=== PATIENT | female | born 1985 | race Caucasian/White ===

== ENCOUNTER 2016-07-23 09:44 | Emergency (ER) | payer MEDICAID, OTHER ==
[2016-07-23 10:13] VITALS: BP 148/97
--- NOTE | 2016-07-23 10:43 | RAD ---
INDICATION: Right ankle injury. TECHNIQUE: 3 views of the right ankle were obtained. FINDINGS: Soft tissue swelling is noted along the anterolateral aspect of the ankle. No fracture is seen. Joint spaces appear maintained. IMPRESSION: SOFT TISSUE SWELLING, NO FRACTURE IS SEEN.
--- NOTE | 2016-07-23 10:56 | UC ---
Lower Extremity/Ankle HPI - HPI Summary HPI Summary: Stepped on uneven ground 2 weeks ago and rolled R ankle. Had similar injury about 2-3 months before that. Pain in ankle since then, especially after being on it for a couple hours. Pain radiates up leg. Denies hx of surgery or severe injury. - History of Current Complaint Chief Complaint: UCLowerExtremity Stated Complaint: ANKLE INJURY Time Seen by Provider: 07/23/16 10:07 Hx Obtained From: Patient Hx Last Menstrual Period: mirana ?: No Onset/Duration: Sudden Onset Severity Initially: Moderate Severity Currently: Moderate Aggravating Factor(s): Standing, Ambulation Alleviating Factor(s): Rest Able to Bear Weight: Yes - Allergies/Home Medications Allergies/Adverse Reactions: Allergies Allergy/AdvReac Type Severity Reaction Status Date / Time Penicillins Allergy Severe Swelling Verified 01/31/16 12:39 Home Medications: Home Medications Ibuprofen [Advil] 600 mg PO 07/23/16 [History] PMH/Surg Hx/FS Hx/Imm Hx Endocrine History Of: Denies: Diabetes, Thyroid Disease Cardiovascular History Of: Reports: Hypertension Denies: Cardiac Disorders Respiratory History Of: Denies: COPD, Asthma GI/ History Of: Denies: Ulcer - Surgical History Surgical History: Yes Surgery Procedure, Year, and Place: Gallbladder removed 2008 - Family History Known Family History: Positive: Hypertension, Diabetes, Other - Arthritis - Social History Occupation: Employed Full-time Lives: With Family Alcohol Use: Occasionally Substance Use Type: None Smoking Status (MU): Never Smoked Tobacco Household Exposure Type: Cigarettes Review of Systems Constitutional: Negative Skin: Negative Eyes: Negative ENT: Negative Respiratory: Negative Cardiovascular: Negative Gastrointestinal: Negative Genitourinary: Negative Motor: Negative Neurovascular: Negative Musculoskeletal: Arthralgia Neurological: Negative Psychological: Negative All Other Systems Reviewed And Are Negative: Yes Physical Exam Triage Information Reviewed: Yes Appearance: Well-Appearing, No Pain Distress, Well-Nourished Vital Signs: Initial Vital Signs Temp 97.9 F 07/23/16 10:06 Pulse 72 07/23/16 10:06 Resp 18 07/23/16 10:06 BP 148/97 07/23/16 10:06 Pulse Ox 99 07/23/16 10:06 Vital Signs Reviewed: Yes Eye Exam: Normal Eyes: Positive: Conjunctiva Clear ENT Exam: Normal ENT: Positive: Normal ENT inspection, Hearing grossly normal, Pharynx normal, TMs normal Dental Exam: Normal Neck exam: Normal Neck: Positive: Supple, Nontender, No Lymphadenopathy Respiratory Exam: Normal Respiratory: Positive: Chest non-tender, Lungs clear, Normal breath sounds, No respiratory distress, No accessory muscle use Cardiovascular Exam: Normal Cardiovascular: Positive: RRR, No Murmur Musculoskeletal Exam: Other - mild tenderness R med and lat malleolus Musculoskeletal: Positive: Strength Intact, ROM Intact Neurological Exam: Normal Psychological Exam: Normal Skin Exam: Normal Lower Extremity Course/Dx - Differential Dx/Diagnosis Provider Diagnoses: R ankle sprain Discharge - Discharge Plan Condition: Stable Disposition: HOME Patient Education Materials: Ankle Sprain (ED) Referrals: Genna Sharma NP [Primary Care Provider] - Additional Instructions: Please arrange for physical therapy and follow up with your primary care provider to discuss whether you will need to see an orthopedist.
== END 2016-07-23 11:05 | disposition home or self-care (01) ==
LOC: UCEAST 09:44
DX: S93.401A Sprain of unspecified ligament of right ankle, initial encounter (principal); X50.1XXA Overexertion from prolonged static or awkward postures, initial encounter; Y93.9 Activity, unspecified; Y92.89 Other specified places as the place of occurrence of the external cause; Z88.0 Allergy status to penicillin; Z90.49 Acquired absence of other specified parts of digestive tract; Z77.22 Contact with and (suspected) exposure to environmental tobacco smoke (acute) (chronic)
CPT/HCPCS: 99212; G0463

== ENCOUNTER 2016-09-05 14:45 | Emergency (ER) | payer OTHER ==
[2016-09-05 15:05] VITALS: BP 130/76
--- NOTE | 2016-09-05 15:20 | UC ---
Throat Pain/Nasal Blaise HPI - HPI Summary HPI Summary: Started Wednesday night with achy right shoulder. Had continued body aches. Yesterday she states that she woke up feeling like she got "punched in the face. " She also complains of a headache along with the sinus pain. Yesterday, she took three Tylenol and had relief for an hour. This morning she woke up with a swollen throat. She states that her throat is sore and it is painful to swallow. Her sister was recently diagnosed with strep throat. - History of Current Complaint Chief Complaint: UCRespiratory Stated Complaint: SORE THROAT, HEADACHE,AND SINUS CONGESTION Time Seen by Provider: 09/05/16 15:00 Hx Obtained From: Patient Hx Last Menstrual Period: mirana Onset/Duration: Gradual Onset Severity: Moderate Cough: Nonproductive Associated Signs & Symptoms: Positive: Sinus Discomfort, Other - Chills, headache and body aches Related History: Seasonal Allergies - Allergies/Home Medications Allergies/Adverse Reactions: Allergies Allergy/AdvReac Type Severity Reaction Status Date / Time Penicillins Allergy Severe Swelling Verified 09/05/16 15:05 Home Medications: Home Medications Acetaminophen [Tylenol] 2 PRN 09/05/16 [History] PMH/Surg Hx/FS Hx/Imm Hx Previously Healthy: Yes Endocrine History Of: Denies: Diabetes, Thyroid Disease Cardiovascular History Of: Reports: Hypertension Denies: Cardiac Disorders Respiratory History Of: Denies: COPD, Asthma GI/ History Of: Denies: Ulcer - Surgical History Surgical History: Yes Surgery Procedure, Year, and Place: Gallbladder removed 2008 - Family History Known Family History: Positive: Hypertension, Diabetes, Other - Arthritis - Social History Occupation: Employed Full-time Lives: With Family Alcohol Use: Occasionally Substance Use Type: None Smoking Status (MU): Never Smoked Tobacco Household Exposure Type: Cigarettes Review of Systems Constitutional: Chills, Other - Body aches Skin: Negative Eyes: Negative ENT: Sore Throat, Other - Sinus pain, headache Respiratory: Negative Cardiovascular: Negative Gastrointestinal: Negative Genitourinary: Negative Motor: Negative Neurovascular: Negative Musculoskeletal: Negative Neurological: Negative Psychological: Negative All Other Systems Reviewed And Are Negative: Yes Physical Exam Triage Information Reviewed: Yes Appearance: Well-Nourished, Pain Distress - grimacing occasionally Vital Signs: Initial Vital Signs Temp 98.4 F 09/05/16 14:59 Pulse 76 09/05/16 14:59 Resp 18 09/05/16 14:59 BP 130/76 09/05/16 14:59 Pulse Ox 98 09/05/16 14:59 Vital Signs Reviewed: Yes Eye Exam: Normal Eyes: Positive: Conjunctiva Clear ENT Exam: Normal ENT: Positive: Normal ENT inspection, Hearing grossly normal, Pharynx normal, TMs normal. Negative: Pharyngeal erythema, Tonsillar swelling, Tonsillar exudate Neck exam: Other Neck: Positive: Tenderness @ - With palpation of neck Respiratory Exam: Normal Respiratory: Positive: Chest non-tender, Lungs clear, Normal breath sounds, No respiratory distress Cardiovascular Exam: Normal Cardiovascular: Positive: RRR, No Murmur Musculoskeletal Exam: Normal Musculoskeletal: Positive: Strength Intact Neurological Exam: Normal Neurological: Positive: Alert Psychological Exam: Normal Psychological: Positive: Age Appropriate Behavior Skin Exam: Normal Throat Pain/Nasal Course/Dx - Course Course Of Treatment: Sinusitis. Pharyngitis - Differential Dx/Diagnosis Differential Diagnosis/HQI/PQRI: Influenza, Pharyngitis, Sinusitis, Other - Strep throat Provider Diagnoses: Sinusitis and Pharyngitis Discharge - Discharge Plan Condition: Stable Disposition: HOME Patient Education Materials: Sinusitis (ED) Print Language: LITHUANIAN Referrals: Genna Sharma NP [Primary Care Provider] - Additional Instructions: This is most likely a viral sinusitis. Symptoms may last 2-3 weeks. Take Ibuprofen for sinus and throat pain. May use salt water rinses or numbing agents such as Chloraseptic for throat pain. Drink plenty of fluids. If symptoms continue to worsen or you experience fevers, call or come back.
== END 2016-09-05 15:57 | disposition home or self-care (01) ==
LOC: UCEAST 14:45
DX: J32.9 Chronic sinusitis, unspecified (principal); J02.9 Acute pharyngitis, unspecified; I10 Essential (primary) hypertension; Z88.0 Allergy status to penicillin
CPT/HCPCS: 87651; 99211; G0463

== ENCOUNTER 2016-12-19 12:47 | Emergency (ER) | payer OTHER ==
[2016-12-19 13:58] VITALS: BP 220/120
[2016-12-19] MEDS ORDERED: Ondansetron ODT TAB* 4 MG PO ONE (14:01)
--- NOTE | 2016-12-19 15:00 | UC ---
Leidy Bosch Edward, scribed for Lydia Randle DO on 12/19/16 at 1353 . Abdominal Pain Female HPI - HPI Summary HPI Summary: 30 y/o female presents to [facility] c/o ABD pain that started 2 days ago. The pain is rated at an 8/10 in severity and described as stomach cramps. Associated sx: N/V/D, chills, fatigue last night, cough, back pain (earlier this week) and dizziness. The patient states that she can't keep anything down (including water and power sendy) and is nauseous now. There were 3 episodes of watery diarrhea that was not odorous. She states she has vomited more than 5 times a day. The nausea wakes the patient up multiple times per night. Patient also c/o RAMIREZ that is getting progressively worse from a 3/10 this morning to a 7/10 now. Denies fever, sore throat, ear ache, SOB. PMHx HTN. FHx mother HTN, pre-diabetic ; grandmother arthritis. Non-smoker. PT INITIALLY DENIED CP BUT NOT LATER ADMITTED TO A COUPLE OF EPISODES OF RT SIDED CP YESTERDAY. - History of Current Complaint Chief Complaint: UCAbdominalPain Stated Complaint: COUGH VOMITING DIARRHEA Time Seen by Provider: 12/19/16 13:47 Hx Obtained From: Patient Hx Last Menstrual Period: mirena Onset/Duration: Sudden Onset, Lasting Days, Still Present, Worse Since - WORSING RAMIREZ AND DEHYDRATION Severity Initially: Severe Severity Currently: Severe Pain Intensity: 8 Pain Scale Used: 0-10 Numeric Location: Discrete At: LUQ, Epigastric Radiates: No Character: Cramping Aggravating Factor(s): Food Alleviating Factor(s): Nothing Associated Signs and Symptoms: Positive: Cough, Chest Pain, Dizzy, Back Pain - Around a week ago, Nausea, Vomiting, Diarrhea, Other: - Chills, fatigue. Negative: Diaphoresis, Fever, Urinary Symptoms Allergies/Adverse Reactions: Allergies Allergy/AdvReac Type Severity Reaction Status Date / Time Penicillins Allergy Severe Swelling Verified 09/05/16 15:05 PMH/Surg Hx/FS Hx/Imm Hx Previously Healthy: No Cardiovascular History: Hypertension - Surgical History Surgical History: Yes Surgery Procedure, Year, and Place: Gallbladder removed 2008 - Family History Known Family History: Positive: Hypertension, Diabetes, Other - Arthritis - Social History Occupation: Employed Full-time Lives: With Family Alcohol Use: Occasionally Substance Use Type: None Smoking Status (MU): Never Smoked Tobacco Household Exposure Type: Cigarettes Review of Systems Constitutional: Chills, Fatigue Skin: Negative Eyes: Negative ENT: Negative Respiratory: Cough Cardiovascular: Chest Pain Gastrointestinal: Abdominal Pain, Vomiting - more than 5 times a day, Diarrhea, Nausea Genitourinary: Negative Motor: Negative Neurovascular: Negative Musculoskeletal: Myalgia - Back pain last week Neurological: Headache, Other - Dizziness Psychological: Negative All Other Systems Reviewed And Are Negative: Yes Physical Exam Triage Information Reviewed: Yes Appearance: No Pain Distress, Well-Nourished, Ill-Appearing - Mild to moderate Vital Signs: Initial Vital Signs Temp 98.7 F 12/19/16 12:50 Pulse 71 12/19/16 12:50 Resp 18 12/19/16 12:50 BP 198/116 12/19/16 12:50 Pulse Ox 100 12/19/16 12:50 Vital Signs Reviewed: Yes Eyes: Positive: Conjunctiva Clear. Negative: Discharge ENT: Positive: Hearing grossly normal. Negative: Muffled/hoarse voice Neck exam: Normal Neck: Positive: Supple Respiratory: Positive: Lungs clear, Normal breath sounds, No respiratory distress, No accessory muscle use Cardiovascular Exam: Normal Cardiovascular: Positive: RRR Abdomen Description: Positive: Soft, Other: - Mild tenderness @ LUQ and epigastric area. Negative: Distended, Guarding Bowel Sounds: Positive: Present Musculoskeletal Exam: Normal Neurological Exam: Normal Neurological: Positive: Alert, Muscle Tone Normal Psychological Exam: Normal Psychological: Positive: Age Appropriate Behavior Skin Exam: Normal Diagnostics - EKG Cardiac Rhythm: Sinus: Normal - @ 77 bpm Ectopy: None ST Segment: Normal - No ST elevation Abd Pain Female Course/Dx - Course Course Of Treatment: BP 220/120, RAMIREZ, DIZZY, VOMITING, CP, HEMATURIA, PROTEINURIA , ABD PAIN, DEHYDRATION - Differential Dx/Diagnosis Differential Diagnosis: Ectopic , OK, Pancreatitis, Renal Colic, Urinary Tract Infection, Other - HTN CRISIS, GASTROENTERITIS Provider Diagnoses: HTN CRISIS Discharge - Discharge Plan Condition: Guarded Disposition: TRANS HIGHER LVL OF CARE FAC The documentation as recorded by the Leidy lopez Edward accurately reflects the service I personally performed and the decisions made by , Lydia Randle DO.
== END 2016-12-19 14:52 | disposition short-term general hospital (02) ==
LOC: UCEAST 12:47
DX: I16.9 Hypertensive crisis, unspecified (principal)
CPT/HCPCS: 81003; 84702; 93005; 99213; A9270-GY; G0463

== ENCOUNTER 2016-12-19 15:08 | Emergency (ER) | payer OTHER ==
[2016-12-19] MEDS ORDERED: NS 0.9% 1000 ML* 1,000 ML IV ONE (15:28)
[2016-12-19] MEDS ORDERED: Ondansetron INJ* 2 MG/ML VIAL IV ONE (15:36)
[2016-12-19] MEDS ORDERED: Morphine INJ* 4 MG/ML 1 ML SYRINGE IV ONE (16:01)
[2016-12-19 16:07] LABS: Urine Bacteria Absent (Absent); Urine Bilirubin Negative (Negative); Urine Glucose Negative (Negative); Urine Nitrite Negative (Negative)
[2016-12-19 16:21] LABS: Hematocrit 42 % (35-47); Hemoglobin 14.1 g/dl (12.0-16.0); Mean Corpuscular HGB Conc 34 g/dl (31-36); Mean Corpuscular Hemoglobin 31 pg (27-31); Mean Corpuscular Volume 91 fL (80-97); Mean Platelet Volume 10 um3 (7.4-10.4); Red Blood Count 4.58 10^6/ul (4.0-5.4); Red Cell Distribution Width 14 % (10.5-15); White Blood Count 10.8 10^3/ul (3.5-10.8)
[2016-12-19 16:37] LABS: Albumin 4.5 g/dL (3.2-5.2); BUN/Creatinine Ratio 20.6 (8-20); C Reactive Protein 4.18 mg/L (< 5.00); Calcium 9.1 mg/dL (8.6-10.3); EGFR African American 130.7 (>60); EGFR Non-African American 101.6 (>60); Globulin 3.3 g/dL (2-4); Potassium 3.7 mmol/L (3.5-5.0); Total Bilirubin 0.9 mg/dL (0.2-1.0); Total Protein 7.8 g/dL (6.4-8.9)
[2016-12-19] MEDS ORDERED: Iohexol 300* (CONTRAST) 10 ML SDV IV ONE (17:01)
--- NOTE | 2016-12-19 18:13 | RAD ---
CLINICAL HISTORY: Right lower quadrant pain, vomiting COMPARISON: None TECHNIQUE: Multiple contiguous axial CT scans were obtained of the abdomen and pelvis after the administration of intravenous contrast. Coronal and sagittal multiplanar reformations are submitted for review. Oral contrast was administered. Delayed images were obtained through the abdomen and pelvis. FINDINGS: LUNG BASES: The lung bases are clear. LIVER: The liver is diffusely low in attenuation compared to the spleen. There are no focal hepatic parenchymal masses. BILE DUCTS: There is no intrahepatic or extrahepatic biliary dilatation. GALLBLADDER: The gallbladder is not visualized. Surgical clips are noted in the gallbladder fossa. PANCREAS: The pancreas is normal, without mass or ductal dilatation. SPLEEN: Normal in size and appearance. UPPER GI TRACT: Evaluation of the gastrointestinal tract is limited by incomplete gastric distention. The upper GI tract is unremarkable. SMALL BOWEL AND MESENTERY: The small bowel is normal in contour, course, and caliber. There is no obstruction or dilatation. COLON: The colon is normal in contour, course, caliber. There is no pericolonic inflammatory change. There is a tubular, vermiform, hollow viscus that is blind ending, and originates from the cecum, consistent with a normal appendix. There is no periappendiceal inflammatory change. This is best seen on axial images 51 through 57 ADRENALS: Normal bilaterally. KIDNEYS: The kidneys are normal in shape, size, contour, and axis. There is no hydronephrosis or nephrolithiasis. BLADDER: The bladder is smooth in contour. PELVIC ORGANS: The uterus and adnexa are grossly normal for technique. An IUD is noted AORTA: The aorta is normal. IVC: Unremarkable LYMPH NODES: There is no lymphadenopathy by size criteria. ABDOMINAL WALL: There is no evidence for abdominal wall hernia. BONES AND SOFT TISSUES: Unremarkable OTHER: None IMPRESSION: 1. NORMAL APPENDIX. 2. FATTY LIVER. 3. NO ACUTE CT PATHOLOGY OF THE VISUALIZED ABDOMEN OR PELVIS
[2016-12-19] MEDS ORDERED: Ondansetron TAB* 4 MG PO ONE (18:45)
[2016-12-19 18:59] VITALS: BP 172/138
--- NOTE | 2016-12-20 22:40 | ED ---
Maxwell Bosch Thomas, scribed for Facundo Hernandez MD on 12/19/16 at 1542 . GI/ HPI - HPI Summary HPI Summary: The pt is a 30 y/o M who presents to the ED c/o central abd pain that began two days ago. She additionally c/o nausea, dry heaves, diarrhea, RAMIREZ, and chills. The pt has thrown up 4x today. She cannot keep anything down. Her RAMIREZ is improving. She denies black bowel movements, bloody stool. She saw Dr. Ag at [facility], where she was given a pill for nausea but did not have an IV. She claims that her BP was 230/180. PSHx: cholecystectomy. The pt is accompanied by her mother and sister. SHx: occasional drinking, no tobacco use, no drug use. LNMP: October (pt is on Mirena). She was not previously treated for BP. - History of Current Complaint Chief Complaint: EDNauseaVomitDiarrh Time Seen by Provider: 12/19/16 15:24 Stated Complaint: ABD PAIN, COMMING FROM CC Hx Obtained From: Patient Onset/Duration: Started Days Ago - 2 days, Still Present, Worse Since - this AM Associated Signs and Symptoms: Positive: Nausea, Vomiting, Chills, Abdominal Pain - onset two days ago, Other: - POS: dry heaving, RAMIREZ (improving). Negative : Black Tarry Stool, Blood w/Stool Additional Signs & Symptoms: Positive: Other: - POS: pt is on Mirena - Allergy/Home Medications Allergies/Adverse Reactions: Allergies Allergy/AdvReac Type Severity Reaction Status Date / Time Penicillins Allergy Severe Swelling Verified 09/05/16 15:05 PMH/Surg Hx/FS Hx/Imm Hx Previously Healthy: No Endocrine/Hematology History: Denies: Hx Diabetes, Hx Thyroid Disease Cardiovascular History: Reports: Hx Hypertension Respiratory History: Denies: Hx Asthma, Hx Chronic Obstructive Pulmonary Disease (COPD) GI History: Denies: Hx Ulcer - Surgical History Surgery Procedure, Year, and Place: Gallbladder removed 2008 Infectious Disease History: Denies: Hx Clostridium Difficile, Hx Hepatitis, Hx Human Immunodeficiency Virus (HIV), Hx of Known/Suspected MRSA, Hx Shingles, Hx Tuberculosis, Hx Known/ Suspected VRE, Hx Known/Suspected VRSA, History Other Infectious Disease, Traveled Outside the [place] in Last 30 Days - Family History Known Family History: Positive: Hypertension, Diabetes, Other - Arthritis - Social History Alcohol Use: Occasionally Substance Use Type: Reports: None Smoking Status (MU): Never Smoked Tobacco Review of Systems Positive: Chills. Negative: Fever Eyes: Negative Negative: Erythema - eyes ENT: Negative Negative: Sore Throat Cardiovascular: Negative Negative: Chest Pain Respiratory: Negative Negative: Shortness Of Breath, Cough Positive: Abdominal Pain - onset two days ago, Vomiting - now dry heaving, Diarrhea, Nausea, Other - NEG: black bowel movements, bloody stool Genitourinary: Negative Negative: dysuria, hematuria Musculoskeletal: Negative Negative: Myalgia, Edema - legs Skin: Negative Negative: Rash Neurological: Other - NEG: dizziness Positive: Headache - improving since in the ED Psychological: Normal All Other Systems Reviewed And Are Negative: Yes Physical Exam - Summary Physical Exam Summary: Constitutional: Well-developed, Well-nourished, Alert. (-) Distressed Skin: Warm, Dry HENT: Normocephalic; Atraumatic Eyes: Conjunctiva normal Neck: Musculoskeletal ROM normal neck. (-) JVD, (-) Stridor, (-) Tracheal deviation Cardio: Rhythm regular, rate normal, Heart sounds normal; Intact distal pulses; The pedal pulses are 2+ and symmetric. Radial pulses are 2+ and symmetric. (-) Murmur Pulmonary/Chest wall: Effort normal. (-) Respiratory distress, (-) Wheezes, (-) Rales Abd: RLQ and LLQ TTP. Also Tender to light touch. Soft, (-) Distension, (-) Guarding, (-) Rebound Musculoskeletal: (-) Edema Lymph: (-) Cervical adenopathy Neuro: Alert, Oriented x3 Psych: Mood and affect Normal Triage Information Reviewed: Yes Vital Signs On Initial Exam: Initial Vitals Temp Pulse Resp BP Pulse Ox 98.1 F 76 20 202/112 100 12/19/16 15:24 12/19/16 15:24 12/19/16 15:24 12/19/16 15:24 12/19/16 15:24 Vital Signs Reviewed: Yes Diagnostics - Vital Signs Vital Signs Temp Pulse Resp BP Pulse Ox 12/19/16 15:24 98.1 F 76 20 202/112 100 - Laboratory Result Diagrams: 12/19/16 14:30 12/19/16 14:30 Lab Statement: Any lab studies that have been ordered have been reviewed, and results considered in the medical decision making process. - CT CT Abd/Pel CT Interpretation: No Acute Changes - 1. NORMAL APPENDIX. 2. FATTY LIVER. 3. NO ACUTE CT PATHOLOGY OF THE VISUALIZED ABDOMEN OR PELVIS CT Interpretation Completed By: Radiologist Re-Evaluation - Re-Evaluation First Eval Re-Evaluation Time: 18:46 Change: Improved Comment: Patient tolerated PO GIGU Course/Dx - Course Assessment/Plan: The pt is a 30 y/o M who presents to the ED c/o central abd pain that began two days ago. She additionally c/o nausea, dry heaves, diarrhea , RAMIREZ, and chills. The pt has thrown up 4x today. She cannot keep anything down. Her RAMIREZ is improving. She denies black bowel movements, bloody stool. She saw Dr. Ag at [facility], where she was given a pill for nausea but did not have an IV. She claims that her BP was 230/180. PSHx: cholecystectomy. The pt is accompanied by her mother and sister. SHx: occasional drinking, no tobacco use, no drug use. LNMP: October (pt is on Mirena). She was not previously treated for BP. A CT Abd/Pel revealed 1. NORMAL APPENDIX. 2. FATTY LIVER. 3. NO ACUTE CT PATHOLOGY OF THE VISUALIZED ABDOMEN OR PELVIS. Bloodwork revealed Lymph % 21.5, Pine% 9.7, absolute monos 1.1, BUN/Creatinine ratio 20.6, Ur specific gravity 1.006, Urine blood 1+H, Ur squamous cells present. Pt was re-evaluated and is now tolerating PO intake. In the ED course, she received morphine, ondansetron, and IV fluids. Pt was diagnosed with gastroenteritis and hypertension and given educational materials. She was discharged home stable and advised to return if changing or worsening symptoms. - Diagnoses Provider Diagnoses: Gastroenteritis, Hypertension Discharge - Discharge Plan Condition: Stable Disposition: HOME Prescriptions: Ondansetron ODT TAB* [Zofran 4 MG Odt TAB*] 4 mg PO Q8H PRN #9 tab.odt PRN Reason: Nausea/Vomiting Patient Education Materials: Gastroenteritis (ED), Hypertension (ED) Referrals: Harjeet BAZAN,Corina A. B [Primary Care Provider] - 3 Days Additional Instructions: RETURN TO THE EMERGENCY DEPARTMENT FOR CHANGING OR WORSENING SYMPTOMS The documentation as recorded by the Maxwell lopez Thomas accurately reflects the service I personally performed and the decisions made by me, Facundo Hernandez MD.
== END 2016-12-19 19:11 | disposition home or self-care (01) ==
LOC: ED 15:08
DX: K52.9 Noninfective gastroenteritis and colitis, unspecified (principal); I10 Essential (primary) hypertension
CPT/HCPCS: 36415; 74177; 80053; 81003; 81015; 83605; 83690; 85025; 86140; 96374; 96375; 99283; A9270-GY; J2270; J2405; Q9967

== ENCOUNTER 2016-12-23 18:11 | Emergency (ER) | payer OTHER ==
[2016-12-23] MEDS ORDERED: Nitroglycerin TAB 0.4 MG* 0.4 MG TAB SL ONE (20:02)
[2016-12-23] MEDS ORDERED: Aspirin Low Dose CHEW TAB* 81 MG PO ONE (20:02)
[2016-12-23] MEDS ORDERED: Morphine INJ* 4 MG/ML 1 ML SYRINGE IV ONE (20:02)
[2016-12-23] MEDS ORDERED: Ondansetron INJ* 2 MG/ML VIAL IV ONE (20:02)
[2016-12-23] MEDS ORDERED: NS 0.9% 1000 ML* 1,000 ML IV SCH (20:15)
[2016-12-23 20:25] LABS: Hematocrit 40 % (35-47); Hemoglobin 13.2 g/dl (12.0-16.0); Mean Corpuscular HGB Conc 33 g/dl (31-36); Mean Corpuscular Hemoglobin 31 pg (27-31); Mean Corpuscular Volume 92 fL (80-97); Mean Platelet Volume 9 um3 (7.4-10.4); Red Blood Count 4.32 10^6/ul (4.0-5.4); Red Cell Distribution Width 13 % (10.5-15); White Blood Count 7.7 10^3/ul (3.5-10.8)
--- NOTE | 2016-12-23 20:38 | RAD ---
INDICATION: Chest pain COMPARISON: Chest x-ray dated August 06, 2014 TECHNIQUE: Single AP portable view of the chest was obtained. FINDINGS: Image quality is compromised due to the relative inferiority of a portable chest x-ray. The heart and mediastinum exhibit normal size and contour. The lungs are grossly clear. There is no evidence of a large pleural effusion. Visualized bones are normal for the patient's age. IMPRESSION: No radiographic evidence for acute cardiopulmonary abnormality on this portable chest x-ray.
[2016-12-23 20:41] LABS: ALT 24 U/L (7-52); AST 19 U/L (13-39); Albumin 4.5 g/dL (3.2-5.2); Alkaline Phosphatase 67 U/L (34-104); Anion Gap 6 mmol/L (2-11); BUN/Creatinine Ratio 18.1 (8-20); Blood Urea Nitrogen 13 mg/dL (6-24); C Reactive Protein 4.66 mg/L (< 5.00); CO2 Carbon Dioxide 25 mmol/L (22-32); Calcium 9.3 mg/dL (8.6-10.3); Chloride 105 mmol/L (101-111); Creatine Kinase 59 U/L (10-223); EGFR African American 122.3 (>60); EGFR Non-African American 95.1 (>60); Glucose 89 mg/dL (70-100); Lipase 23 U/L (11.0-82.0); Potassium 3.8 mmol/L (3.5-5.0); Sodium 136 mmol/L (133-145); Total Protein 7.5 g/dL (6.4-8.9)
[2016-12-23 20:55] LABS: TSH (Thyroid Stimulating Horm) 1.28 mcIU/mL (0.34-5.60)
[2016-12-23] MEDS ORDERED: Losartan TAB* 25 MG PO ONE (22:26)
[2016-12-23] MEDS ORDERED: amLODIPine TAB* 5 MG PO ONE (22:43)
[2016-12-23 23:01] LABS: Urine Bacteria Absent (Absent); Urine Bilirubin Negative (Negative); Urine Glucose Negative (Negative); Urine Nitrite Negative (Negative)
--- NOTE | 2016-12-23 23:14 | ED ---
Leidy Bosch Edward, scribed for Ariel Merino MD on 12/23/16 at 2002 . HPI Chest Pain - HPI Summary HPI Summary: 30 y/o female presents to ED c/o CP rated at a 7/10 that started around 3 hours ago. The CP is located on the left side, radiating up the L shoulder and down the L arm. Patient was watching a movie when the CP started. Patient also c/o RAMIREZ on the left side radiating down to the back of her neck, also starting 3 hours ago. The CP is aggravated by pushing on it and deep breaths. Denies ABD pain. After the CP started, the patient measured high blood pressure at home ( around 190s/90s). Patient felt she couldn't breathe after taking blood pressure medication today. PMHx HTN, no PMHx blood clots. FHx HTN, pre-diabetic in mom. BP 199/115 now. - History of Current Complaint Chief Complaint: EDChestPainROMI Time Seen by Provider: 12/23/16 19:53 Hx Obtained From: Patient Onset/Duration: Started Hours Ago - 3 hours ago Timing: Constant Initial Severity: Severe Current Severity: Severe Pain Intensity: 8 Pain Scale Used: 0-10 Numeric Chest Pain Location: Left Anterior, Left Lateral Chest Pain Radiates: Yes Chest Pain Radiates To:: Back, Shoulder - L, Arm - L Aggravating Factor(s): Deep Breaths, Other: - Pushing on chest Associated Signs and Symptoms: Positive: Headaches - L side, radiating down back of neck, Other: - High BP. Negative: Abdominal Pain - Allergy/Home Medications Allergies/Adverse Reactions: Allergies Allergy/AdvReac Type Severity Reaction Status Date / Time Penicillins Allergy Severe Swelling Verified 09/05/16 15:05 PMH/Surg Hx/FS Hx/Imm Hx Previously Healthy: No Endocrine/Hematology History: Denies: Hx Diabetes, Hx Thyroid Disease Cardiovascular History: Reports: Hx Hypertension Respiratory History: Denies: Hx Asthma, Hx Chronic Obstructive Pulmonary Disease (COPD) GI History: Denies: Hx Ulcer - Surgical History Surgery Procedure, Year, and Place: Gallbladder removed 2008 Infectious Disease History: No Infectious Disease History: Denies: Hx Clostridium Difficile, Hx Hepatitis, Hx Human Immunodeficiency Virus (HIV), Hx of Known/Suspected MRSA, Hx Shingles, Hx Tuberculosis, Hx Known/ Suspected VRE, Hx Known/Suspected VRSA, History Other Infectious Disease, Traveled Outside the [place] in Last 30 Days - Family History Known Family History: Positive: Hypertension, Diabetes, Other - Arthritis - Social History Occupation: Employed Full-time Lives: With Family Alcohol Use: Occasionally Substance Use Type: Reports: None Smoking Status (MU): Never Smoked Tobacco Review of Systems Constitutional: Negative Eyes: Negative ENT: Negative Positive: Chest Pain Respiratory: Negative Gastrointestinal: Negative Negative: Abdominal Pain Genitourinary: Negative Musculoskeletal: Negative Skin: Negative Positive: Headache Psychological: Normal All Other Systems Reviewed And Are Negative: Yes Physical Exam Triage Information Reviewed: Yes Vital Signs On Initial Exam: Initial Vitals Temp Pulse Resp BP Pulse Ox 97.2 F 67 20 229/119 100 12/23/16 18:16 12/23/16 18:16 12/23/16 18:16 12/23/16 18:16 12/23/16 18:16 Vital Signs Reviewed: Yes Appearance: Positive: Well-Appearing, No Pain Distress Skin: Positive: Warm, Skin Color Reflects Adequate Perfusion, Dry Head/Face: Positive: Normal Head/Face Inspection Eyes: Positive: EOMI, GINGER ENT: Positive: Normal ENT inspection Neck: Positive: Supple, Nontender Respiratory/Lung Sounds: Positive: Clear to Auscultation, Breath Sounds Present Cardiovascular: Positive: RRR Abdomen Description: Positive: Nontender, Soft Bowel Sounds: Positive: Present Musculoskeletal: Positive: Normal, Strength/ROM Intact Neurological: Positive: Normal, Sensory/Motor Intact, Alert, Oriented to Person Place, Time Psychiatric: Positive: Affect/Mood Appropriate Diagnostics - Vital Signs Vital Signs Temp Pulse Resp BP Pulse Ox 12/23/16 18:16 97.2 F 67 20 229/119 100 - Laboratory Lab Results: Lab Results 12/23/16 12/23/16 12/23/16 Range/Units 20:13 20:13 20:13 WBC 7.7 (3.5-10.8) 10^3/ul RBC 4.32 (4.0-5.4) 10^6/ul Hgb 13.2 (12.0-16.0) g/dl Hct 40 (35-47) % MCV 92 (80-97) fL MCH 31 (27-31) pg MCHC 33 (31-36) g/dl RDW 13 (10.5-15) % Plt Count 247 (150-450) 10^3/ul MPV 9 (7.4-10.4) um3 Neut % (Auto) 57.6 (38-83) % Lymph % (Auto) 28.8 (25-47) % [place] % (Auto) 11.1 H (1-9) % Eos % (Auto) 1.9 (0-6) % Baso % (Auto) 0.6 (0-2) % Absolute Neuts (auto) 4.4 (1.5-7.7) 10^3/ul Absolute Lymphs (auto) 2.2 (1.0-4.8) 10^3/ul Absolute Monos (auto) 0.8 (0-0.8) 10^3/ul Absolute Eos (auto) 0.1 (0-0.6) 10^3/ul Absolute Basos (auto) 0 (0-0.2) 10^3/ul Absolute Nucleated RBC 0 10^3/ul Nucleated RBC % 0 INR (Anticoag Therapy) 0.95 (0.89-1.11) APTT 30.0 (26.0-36.3) seconds D-Dimer, Quantitative < 200 (Less Than 230) ng/mL Sodium 136 (133-145) mmol/L Potassium 3.8 (3.5-5.0) mmol/L Chloride 105 (101-111) mmol/L Carbon Dioxide 25 (22-32) mmol/L Anion Gap 6 (2-11) mmol/L BUN 13 (6-24) mg/dL Creatinine 0.72 (0.51-0.95) mg/dL Est GFR ( Amer) 122.3 (>60) Est GFR (Non-Af Amer) 95.1 (>60) BUN/Creatinine Ratio 18.1 (8-20) Glucose 89 (70-100) mg/dL Lactic Acid (0.5-2.0) mmol/L Calcium 9.3 (8.6-10.3) mg/dL Total Bilirubin 1.10 H (0.2-1.0) mg/dL AST 19 (13-39) U/L ALT 24 (7-52) U/L Alkaline Phosphatase 67 (34-104) U/L Total Creatine Kinase 59 (10-223) U/L CK-MB (CK-2) 0.6 (0.6-6.3) ng/mL Troponin I 0.00 (<0.04) ng/mL C-Reactive Protein 4.66 (< 5.00) mg/L B-Natriuretic Peptide ( - 100) pg/mL Total Protein 7.5 (6.4-8.9) g/dL Albumin 4.5 (3.2-5.2) g/dL Globulin 3.0 (2-4) g/dL Albumin/Globulin Ratio 1.5 (1-3) Lipase 23 (11.0-82.0) U/L TSH 1.28 (0.34-5.60) mcIU/mL Beta HCG, Quant < 0.60 mIU/mL Urine Color Urine Appearance Urine pH (5-9) Ur Specific [place] (1.010-1.030) Urine Protein (Negative) Urine Ketones (Negative) Urine Blood (Negative) Urine Nitrate (Negative) Urine Bilirubin (Negative) Urine Urobilinogen (Negative) Ur Leukocyte Esterase (Negative) Urine WBC (Auto) (Absent) Urine RBC (Auto) (Absent) Ur Squamous Epith Cells (Absent) Urine Bacteria (Absent) Urine Glucose (Negative) 12/23/16 12/23/16 12/23/16 Range/Units 20:13 20:13 22:44 WBC (3.5-10.8) 10^3/ul RBC (4.0-5.4) 10^6/ul Hgb (12.0-16.0) g/dl Hct (35-47) % MCV (80-97) fL MCH (27-31) pg MCHC (31-36) g/dl RDW (10.5-15) % Plt Count (150-450) 10^3/ul MPV (7.4-10.4) um3 Neut % (Auto) (38-83) % Lymph % (Auto) (25-47) % [place] % (Auto) (1-9) % Eos % (Auto) (0-6) % Baso % (Auto) (0-2) % Absolute Neuts (auto) (1.5-7.7) 10^3/ul Absolute Lymphs (auto) (1.0-4.8) 10^3/ul Absolute Monos (auto) (0-0.8) 10^3/ul Absolute Eos (auto) (0-0.6) 10^3/ul Absolute Basos (auto) (0-0.2) 10^3/ul Absolute Nucleated RBC 10^3/ul Nucleated RBC % INR (Anticoag Therapy) (0.89-1.11) APTT (26.0-36.3) seconds D-Dimer, Quantitative (Less Than 230) ng/mL Sodium (133-145) mmol/L Potassium (3.5-5.0) mmol/L Chloride (101-111) mmol/L Carbon Dioxide (22-32) mmol/L Anion Gap (2-11) mmol/L BUN (6-24) mg/dL Creatinine (0.51-0.95) mg/dL Est GFR ( Amer) (>60) Est GFR (Non-Af Amer) (>60) BUN/Creatinine Ratio (8-20) Glucose (70-100) mg/dL Lactic Acid 0.7 (0.5-2.0) mmol/L Calcium (8.6-10.3) mg/dL Total Bilirubin (0.2-1.0) mg/dL AST (13-39) U/L ALT (7-52) U/L Alkaline Phosphatase (34-104) U/L Total Creatine Kinase (10-223) U/L CK-MB (CK-2) (0.6-6.3) ng/mL Troponin I (<0.04) ng/mL C-Reactive Protein (< 5.00) mg/L B-Natriuretic Peptide 26 ( - 100) pg/mL Total Protein (6.4-8.9) g/dL Albumin (3.2-5.2) g/dL Globulin (2-4) g/dL Albumin/Globulin Ratio (1-3) Lipase (11.0-82.0) U/L TSH (0.34-5.60) mcIU/mL Beta HCG, Quant mIU/mL Urine Color Yellow Urine Appearance Clear Urine pH 6.0 (5-9) Ur Specific [place] 1.011 (1.010-1.030) Urine Protein Negative (Negative) Urine Ketones Negative (Negative) Urine Blood 1+ H (Negative) Urine Nitrate Negative (Negative) Urine Bilirubin Negative (Negative) Urine Urobilinogen Negative (Negative) Ur Leukocyte Esterase Trace H (Negative) Urine WBC (Auto) Trace(0-5/hpf) (Absent) Urine RBC (Auto) Trace(0-2/hpf) (Absent) Ur Squamous Epith Cells Present H (Absent) Urine Bacteria Absent (Absent) Urine Glucose Negative (Negative) Result Diagrams: 12/23/16 20:13 12/23/16 20:13 Lab Statement: Any lab studies that have been ordered have been reviewed, and results considered in the medical decision making process. - Radiology CXR Xray Interpretation: No Acute Changes - No radiographic evidence for acute cardiopulmonary abnormality on this portable chest x-ray. Radiology Interpretation Completed By: Radiologist - EKG 1 EKG Interpretation: 18:22 - NSR @ 61 bpm, Normal ST elevations, no ectopy. Re-Evaluation - Re-Evaluation 1 Re-Evaluation Time: 22:30 Change: Improved Chest Pain Course/Dx - Course Assessment/Plan: Discussed patient care with Dr. Ana María Cueva. Signed out to Dr. Martinez @ 23:00. Awaiting 2nd Troponin result @ 23:15. NO CRITICAL CARE TIME. RAMIREZ AND CHEST PAIN IMPROVED IN ED AFTER ASA AND NTG SL. BP CONTINUES TO BE ELEVATED. PATIENT REPORTS SOME CHEST TIGHTNESS/SOB WHEN TAKING LISINOPRIL 10MG PO THIS AM. WILL D/C LISINOPRIL AND START NORVASC 5MG PO QD AND F/U PMD. - Diagnoses Provider Diagnoses: Hypertension, Chest pain, Headache Discharge - Discharge Plan Condition: Stable Disposition: HOME Discharge Disposition Comment: Signed out to Dr. Martinez @ 23:00 Prescriptions: amLODIPine TAB* [Norvasc 5 mg TAB*] 5 mg PO DAILY #30 tab Patient Education Materials: Hypertension (ED), Chest Pain (ED), General Headache (ED) Referrals: Harjeet BAZAN,Corina Fischer [Primary Care Provider] - Additional Instructions: FOLLOW UP WITH YOUR DOCTOR. STOP THE LISINOPRIL. TAKE NORVASC 5MG ONCE A DAY. RETURN TO THE EMERGENCY DEPARTMENT FOR ANY WORSENING OF YOUR CONDITION; CHEST PAIN, SHORTNESS OF BREATH, YOU FEEL ILL OR QUESTIONS OR CONCERNS. The documentation as recorded by the Leidy lopez Edward accurately reflects the service I personally performed and the decisions made by , Ariel Merino MD.
[2016-12-24 00:13] VITALS: BP 160/98
== END 2016-12-24 00:18 | disposition home or self-care (01) ==
LOC: ED 18:11
DX: I10 Essential (primary) hypertension (principal); R07.9 Chest pain, unspecified; R51 Headache
CPT/HCPCS: 36415; 71010; 80053; 81003; 81015; 82550; 82553; 83605; 83690; 83880; 84443; 84484; 84702; 85025; 85379; 85610; 85730; 86140; 87086; 93005; 96374; 96375; 99284; A9270-GY; J2270; J2405

== ENCOUNTER 2017-03-01 21:52 | Emergency (ER) | payer OTHER ==
--- NOTE | 2017-03-01 22:09 | UC ---
Throat Pain/Nasal Blaise HPI - HPI Summary HPI Summary: 31 YEAR OLD FEMALE PRESENTS WITH COMPLAINS OF SORE THROAT, POST NASAL DRIP AND FEVER. - History of Current Complaint Stated Complaint: EAR PAIN,ST Time Seen by Provider: 03/01/17 22:07 Hx Obtained From: Patient Hx Last Menstrual Period: mirana Onset/Duration: Sudden Onset Severity: Moderate Pain Scale Used: 0-10 Numeric - 5 Cough: Nonproductive - Allergies/Home Medications Allergies/Adverse Reactions: Allergies Allergy/AdvReac Type Severity Reaction Status Date / Time Penicillins Allergy Severe Swelling Verified 03/01/17 22:26 PMH/Surg Hx/FS Hx/Imm Hx Previously Healthy: Yes - Surgical History Surgical History: Yes Surgery Procedure, Year, and Place: Gallbladder removed 2008 - Family History Known Family History: Positive: Hypertension, Diabetes, Other - Arthritis - Social History Alcohol Use: Occasionally Substance Use Type: None Smoking Status (MU): Never Smoked Tobacco Household Exposure Type: Cigarettes Review of Systems Constitutional: Negative Skin: Negative Eyes: Negative ENT: Sore Throat, Nasal Discharge, Sinus Congestion, Sinus Pain/Tenderness Respiratory: Negative Cardiovascular: Negative Gastrointestinal: Negative Genitourinary: Negative Motor: Negative Neurovascular: Negative Musculoskeletal: Negative Neurological: Negative Psychological: Negative All Other Systems Reviewed And Are Negative: Yes Physical Exam Triage Information Reviewed: Yes Vital Signs Reviewed: Yes Eye Exam: Normal ENT: Positive: Pharyngeal erythema, Nasal congestion Dental Exam: Normal Neck exam: Normal Neck: Positive: 1 Respiratory: Positive: Wheezing Cardiovascular Exam: Normal Abdominal Exam: Normal Musculoskeletal Exam: Normal Neurological Exam: Normal Psychological Exam: Normal Skin Exam: Normal Throat Pain/Nasal Course/Dx - Differential Dx/Diagnosis Provider Diagnoses: SINUSITIS Discharge - Discharge Plan Condition: Stable Disposition: HOME Prescriptions: Azithromyxin BRENT (NF) [Z-Brent (Zithromax) 250 mg tabs #6] 2 tab PO .TODAY, THEN 1 DAILY #6 tab LoraTADine TAB(NF) [Claritin 10 MG TAB(NF)] 10 mg PO DAILY #30 tab Magic M W2 Jamil/Maal/Nyst/Lido* 5 ml SWISH SPIT QID PRN #120 ml PRN Reason: Sore Throat Neomyc/Polym/HC 1% OTIC SUSP* [Cortisporin Otic Susp 1%*] 4 drop BOTH EARS QID # 1 btl Patient Education Materials: Pharyngitis (ED), Earache (ED) Referrals: Harjeet BAZAN,Corina Fischer [Primary Care Provider] -
[2017-03-01 22:26] VITALS: BP 177/119
[2017-03-01] MEDS ORDERED: LoraTADine TAB(NF) 10 MG TAB (AUTOSUB to CETIRIZINE) PO ONE (23:09)
[2017-03-01] MEDS ORDERED: guaiFENesin LIQ* 100 MG/5 ML UDC PO ONE (23:10)
[2017-03-01] MEDS ORDERED: Lidocaine 2% VISCOUS* 15 ML UDC SWISH SPIT ONE (23:10)
[2017-03-01] MEDS ORDERED: Azithromycin TAB* 250 MG PO ONE (23:11)
== END 2017-03-01 23:24 | disposition home or self-care (01) ==
LOC: UCEAST 21:52
DX: J32.9 Chronic sinusitis, unspecified (principal); R50.9 Fever, unspecified; Z90.49 Acquired absence of other specified parts of digestive tract; Z88.0 Allergy status to penicillin; Z77.22 Contact with and (suspected) exposure to environmental tobacco smoke (acute) (chronic)
CPT/HCPCS: 87651; 99213; A9270-GY; G0463

== ENCOUNTER 2017-10-06 17:37 | Emergency (ER) | payer OTHER ==
--- NOTE | 2017-10-06 18:55 | UC ---
Throat Pain/Nasal Blaise HPI - HPI Summary HPI Summary: 31 y/o female PMHX of HTN presents to the urgent care c/o sore throat for the past 2 days. Pain w/ swallowing today is 8/10. She has not taking anything to alleviate symptoms. When Pt told about her elevated BP, she states she has not taken her BP medication today, but she feels fine. She also reports her PCP just increased her BP medication last week. Pt denies RAMIREZ, dizziness, visual disturbances, SOB, chest pain, numbness, abdominal pain, N/v/D - History of Current Complaint Chief Complaint: UCRespiratory Stated Complaint: SORE THROAT Time Seen by Provider: 10/06/17 18:27 Hx Obtained From: Patient Hx Last Menstrual Period: mirana ?: No Onset/Duration: Gradual Onset, Lasting Days - 2 days, Still Present, Worse Since - today Severity: Moderate Pain Intensity: 8 Pain Scale Used: 0-10 Numeric Cough: None Associated Signs & Symptoms: Positive: Dysphagia - Epiglottits Risk Factors Epiglottis Risk Factors: Negative - Allergies/Home Medications Allergies/Adverse Reactions: Allergies Allergy/AdvReac Type Severity Reaction Status Date / Time MS Penicillins [Penicillins] Allergy Severe Swelling Verified 10/06/17 18:11 PMH/Surg Hx/FS Hx/Imm Hx Previously Healthy: Yes Cardiovascular History: Hypertension - Surgical History Surgical History: Yes Surgery Procedure, Year, and Place: Gallbladder removed 2008 - Family History Known Family History: Positive: Hypertension, Diabetes Family History: Arthritis - Social History Occupation: Employed Full-time Lives: With Family Alcohol Use: Weekly Substance Use Type: None Smoking Status (MU): Never Smoked Tobacco Household Exposure Type: Cigarettes Review of Systems Constitutional: Negative Skin: Negative Eyes: Negative ENT: Sore Throat Respiratory: Negative Cardiovascular: Negative Gastrointestinal: Negative Genitourinary: Negative Motor: Negative Neurovascular: Negative Musculoskeletal: Negative Neurological: Negative Psychological: Negative Is Patient Immunocompromised?: No All Other Systems Reviewed And Are Negative: Yes Physical Exam - Summary Physical Exam Summary: VITAL SIGNS: Reviewed. GENERAL: Patient is a well developed and nourished female who is sitting comfortable in the examining table. Patient is not in any acute respiratory distress. HEAD AND FACE: No signs of trauma. No ecchymosis, hematomas or skull depressions. No sinus tenderness. EYES: PERRLA, EOMI x 2, No injected conjunctiva, no nystagmus. No photophobia. EARS: Hearing grossly intact. Ear canals and tympanic membranes are within normal limits. MOUTH: Positive pharynx with erythema, no exudates, no palatal petechiae. Mild B/L tonsillar enlargement with no exudate. Uvula in midline. NECK: Supple, trachea is midline, Positive anterior cervical lymphadenopathy, no JVD, no carotid bruit, no c-spine tenderness, neck with full ROM. No meningeal signs, no Kernig's or brudzinskis signs. CHEST: Symmetric, no tenderness at palpation LUNGS: Clear to auscultation bilaterally. No wheezing or crackles. CVS: Regular rate and rhythm, S1 and S2 present, no murmurs or gallops appreciated. ABDOMEN: Soft, non-tender. No signs of distention. No rebound no guarding, and no masses palpated. Bowel sounds are normal. EXTREMITIES: FROM in all major joints, no edema, no cyanosis or clubbing. NEURO: Alert and oriented x 3. No acute neurological deficits. Speech is normal and follows commands. SKIN: Dry and warm Triage Information Reviewed: Yes Vital Signs: Initial Vital Signs Temp 98.1 F 10/06/17 18:08 Pulse 82 10/06/17 18:08 Resp 18 10/06/17 18:08 BP 220/127 10/06/17 18:08 Pulse Ox 99 10/06/17 18:08 Throat Pain/Nasal Course/Dx - Course Course Of Treatment: 31 y/o female PMHX of HTN presents to the urgent care c/o sore throat for the past 2 days. Pain w/ swallowing today is 8/10. She has not taking anything to alleviate symptoms. When Pt told about her elevated BP, she states she has not taken her BP medication today, but she feels fine. She also reports her PCP just increased her BP medication last week. Pt denies RAMIREZ, dizziness, visual disturbances, SOB, chest pain, numbness, abdominal pain, N/v/ D. Hx obtained. pt w/ pharyngitis on examination. Rapid strep ordered, result: negative. Viral pharyngitis.Pt Rx Tylenol PO to alleviates symptoms of pain and swelling. Advised on hand washing to avoid spreading. Pt advised to rest, eat well and avoid strenuous exercise. If symptoms do not improve or worsen advised to return to the urgent care or f/u with her PCP for further evaluation and treatment. Pt' BP extremely elevated today, Pt seems non compliant w/ BP medication. BP manually retaken BP:194/118. Pt is asymptomatic. Pt educated on HTN, advised to decrease salt in her diet and to take her Amlodipine PO as soon as she gets home. Advised to keep a log and monitor BP and f/u w/ her PCP in 1- 2 days for further management since she is young and need to r/o secondary causes of HTN. Also strongly recommended if she develops dizziness, RAMIREZ, SOB, chest pain to immediately go to the ER for further treatment. Pt understood and agreed w/ D/C instructions. - Differential Dx/Diagnosis Differential Diagnosis/HQI/PQRI: Laryngitis, Mononucleosis, Pharyngitis, Sinusitis, Tonsillitis, URI Provider Diagnoses: 1- Viral pharyngitis. 2- Uncontrolled HTN Discharge - Sign-Out/Discharge Documenting (check all that apply): Discharge/Admit/Transfer - D/C home - Discharge Plan Condition: Stable Disposition: HOME Patient Education Materials: Pharyngitis (ED), Low-Sodium Diet (ED) Forms: *Work Release Referrals: Harjeet BAZAN,Corina Fischer [Primary Care Provider] - 1 Day Additional Instructions: 1-Please take Tylenol PO q4-6hrs prn as instructed after meals to alleviate pain and swelling. Increase fluid intake, eat well, rest and avoid strenuous exercise 2-If symptoms do not improve or worsen please return to the urgent care or f/u with your PCP for further evaluation and treatment. 3-Your BP is elevated today. Please take your BP meds as soon as your get home. If you develop RAMIREZ, dizziness, chest pain, please go immediately to the ER for further treatment. Otherwise please decrease salt in your diet, monitor BP and f /u with your PCP 1-2 days for further management in your HTN - Billing Disposition and Condition Condition: STABLE Disposition: HOME
[2017-10-06 19:16] VITALS: BP 194/118
== END 2017-10-06 19:27 | disposition home or self-care (01) ==
LOC: UCEAST 17:37
DX: J02.8 Acute pharyngitis due to other specified organisms (principal); I10 Essential (primary) hypertension; Z88.0 Allergy status to penicillin
CPT/HCPCS: 87651; 99211; G0463

== ENCOUNTER 2018-03-12 19:58 | Emergency (ER) | payer OTHER ==
[2018-03-12 20:13] VITALS: BP 125/85
[2018-03-12] MEDS ORDERED: Ketorolac INJ* 30 MG/ML 1 ML VIAL IM ONE (21:18)
[2018-03-12] MEDS ORDERED: DOXYcycline CAP(*) 100 MG PO ONE (21:18)
--- NOTE | 2018-03-12 21:25 | UC ---
Throat Pain/Nasal Blaise HPI - HPI Summary HPI Summary: 32-year-old female presents with complaints of 5-6 days nasal congestion, yellow nasal drainage, and sore throat. States she was treating herself saline rinses, steroid nasal spray, and [id number] ibuprofen and felt that symptoms were starting to improve. 2 days ago symptoms began to worsen, and she developed a fever of 101 F. She is also reporting 2-3 episodes of nausea with vomiting after eating. No vomiting within the last 24 hours. Today started with a left-sided "pounding" headache. Denies visual disturbances, photophobia, facial droop, slurred speech, weakness, numbness, or tingling of extremities, ear pain or drainage, chest pain, shortness of breath, or cough. - History of Current Complaint Chief Complaint: UCRespiratory Stated Complaint: FEVER SORE THROAT RAMIREZ Time Seen by Provider: 03/12/18 21:00 Hx Obtained From: Patient Hx Last Menstrual Period: IUD Onset/Duration: Gradual Onset, Lasting Days - 6 Severity: Moderate Pain Intensity: 8 Cough: None Associated Signs & Symptoms: Positive: Sinus Discomfort, Nasal Discharge, Fever , Vomiting. Negative: Dysphagia, Wheezing, Hoarseness, Rash - Allergies/Home Medications Allergies/Adverse Reactions: Allergies Allergy/AdvReac Type Severity Reaction Status Date / Time Penicillins Allergy Swelling Verified 03/12/18 20:13 PMH/Surg Hx/FS Hx/Imm Hx Previously Healthy: Yes Cardiovascular History: Hypertension - Surgical History Surgical History: Yes Surgery Procedure, Year, and Place: Gallbladder removed 2008 - Family History Known Family History: Positive: Hypertension, Diabetes, Other - Arthritis Family History: Arthritis - Social History Occupation: Employed Full-time Lives: With Family Alcohol Use: Occasionally Substance Use Type: None Smoking Status (MU): Never Smoked Tobacco Household Exposure Type: Cigarettes Review of Systems Constitutional: Fever Skin: Negative Eyes: Negative ENT: Sore Throat, Nasal Discharge, Sinus Congestion, Sinus Pain/Tenderness Respiratory: Negative Cardiovascular: Negative Gastrointestinal: Vomiting, Nausea Genitourinary: Negative Neurological: Headache Is Patient Immunocompromised?: No All Other Systems Reviewed And Are Negative: Yes Physical Exam Triage Information Reviewed: Yes Appearance: Well-Appearing, No Pain Distress, Well-Nourished Vital Signs: Initial Vital Signs Temp 97.6 F 03/12/18 20:11 Pulse 106 03/12/18 20:11 Resp 12 03/12/18 20:11 BP 125/85 03/12/18 20:11 Pulse Ox 99 03/12/18 20:11 Vital Signs Reviewed: Yes Eyes: Positive: Conjunctiva Clear. Negative: Discharge ENT: Positive: Pharyngeal erythema - Mild with cobblestoning, Nasal congestion, Nasal drainage, TMs normal, Sinus tenderness - Left frontal, ethmoid, and maxillary tenderness, Uvula midline. Negative: Tonsillar swelling, Tonsillar exudate Neck: Positive: Supple, Nontender, No Lymphadenopathy Respiratory: Positive: Lungs clear, Normal breath sounds, No respiratory distress Cardiovascular: Positive: RRR, No Murmur Abdomen Description: Positive: Nontender, No Organomegaly, Soft. Negative: CVA Tenderness (R), CVA Tenderness (L), Distended, Guarding Bowel Sounds: Positive: Present Neurological: Positive: Alert Skin Exam: Normal Throat Pain/Nasal Course/Dx - Course Course Of Treatment: 32 year old female with 5-6 day hisotry of URI symptoms that were improving with symptomatic treatment then over past 2 days developed worsening of symptoms and fever. Her exam was consistent with an acute sinusitis. Considering the worsening of symptoms and fever despite symptomatic treatment there is a concern for bacterial infection therefore will start her on 7 day course of doxycycline and continue symptomatic care. Patient verbalizes understanding and agrees with POC. - Differential Dx/Diagnosis Differential Diagnosis/HQI/PQRI: Influenza, Pharyngitis, Sinusitis, Tonsillitis Provider Diagnoses: Acute pansinusitis Discharge - Sign-Out/Discharge Documenting (check all that apply): Patient Departure All imaging exams completed and their final reports reviewed: No Studies - Discharge Plan Condition: Stable Disposition: HOME Prescriptions: DOXYcycline CAP(*) [DOXYcycline 100MG CAP(*)] 100 mg PO BID 7 Days #14 cap Doxycycline Hyclate 100 mg PO BID #14 tablet Patient Education Materials: Sinusitis (ED) Referrals: Corina Joshi [Primary Care Provider] - 7 Days (If no improvement.) Additional Instructions: The rapid strep test was performed today was negative. Your symptoms appear to be from a sinus infection. Take doxycycline 1 tablet twice a day for 7 days. We gave your first dose in the clinic tonight. Try to avoid sunlight while taking this medication is it will make you burn more easily. If you must be out in the sun be sure to take precautions such as long sleeves, hats, and sunscreen of at least SPF 30. Continue using the saline rinses at least twice a day to help thin the secretions and promote drainage. Continue using your fluticasone nasal spray 2 sprays each nostril once daily. You may continue to use the Coricidin HBP according to directions as needed for congestion. Use salt water gargles for any sore throat. Follow-up with your primary care provider in 7 days if symptoms persist. - Billing Disposition and Condition Condition: STABLE Disposition: Home
== END 2018-03-12 21:43 | disposition home or self-care (01) ==
LOC: UCEAST 19:58
DX: J01.90 Acute sinusitis, unspecified (principal); Z88.0 Allergy status to penicillin
CPT/HCPCS: 96372; 99212; A9270-GY; G0463; J1885

== ENCOUNTER 2018-04-17 13:55 | Emergency (ER) | payer OTHER ==
[2018-04-17 14:02] VITALS: BP 164/112
--- NOTE | 2018-04-17 14:03 | UC ---
Hypertension HPI - HPI Summary HPI Summary: 32 yo female presents with headache since last night. This morning she had one episode of vomiting. She has a history of HTN and is being treated with norvasc once a day. She has been taking this daily as directed. Her headache is located at her left mandaen and occipital region. She currently denies dizziness, vision changes, weakness, SOB, or chest pain. - History of Current Complaint Chief Complaint: UCHeadache Stated Complaint: HEADACHE Time Seen by Provider: 04/17/18 14:03 Hx Obtained From: Patient Hx Last Menstrual Period: 04/13/18 Onset/Duration: Sudden Onset - Allergies/Home Medications Allergies/Adverse Reactions: Allergies Allergy/AdvReac Type Severity Reaction Status Date / Time Penicillins Allergy Swelling Verified 04/17/18 14:01 PMH/Surg Hx/FS Hx/Imm Hx Cardiovascular History: Hypertension - Surgical History Surgical History: Yes Surgery Procedure, Year, and Place: Gallbladder removed 2008 - Family History Known Family History: Positive: Hypertension, Diabetes, Other - Arthritis Family History: Arthritis - Social History Occupation: Employed Full-time Lives: With Family Alcohol Use: Occasionally Substance Use Type: None Smoking Status (MU): Never Smoked Tobacco Household Exposure Type: Cigarettes Review of Systems Constitutional: Negative Skin: Negative Eyes: Negative ENT: Negative Respiratory: Negative Cardiovascular: Negative Gastrointestinal: Vomiting Genitourinary: Negative Neurovascular: Negative Musculoskeletal: Negative Neurological: Headache Psychological: Negative All Other Systems Reviewed And Are Negative: Yes Physical Exam - Summary Physical Exam Summary: GENERAL: NAD. WDWN. No pain distress. SKIN: No rashes, sores, ulcers, masses, lesions. HEENT: Head: AT/NC Eyes: PERRLA. EOM intact. Conjunctiva clear without inflammation or discharge. NECK: Supple. Nontender. No lymphadenopathy. CHEST: CTAB. No r/r/w. No accessory muscle use. Breathing comfortably and in no distress. CV: RRR. Without m/r/g. Pulses intact. Brisk cap refill. ABDOMEN: Soft. NTTP. No distention or guarding. No CVA tenderness. Bowel sounds present MSK: FROM in B/L UEs and LEs with symmetric strength. NEURO: A&Ox3. 3 word recall, remote, recent memory, ability to follow 2-step directions, and attention intact. Peripheral dsouza intact. No nystagmus. PSYCH: Age appropriate behavior. Triage Information Reviewed: Yes Vital Signs: Initial Vital Signs Temp 98.0 F 04/17/18 13:59 Pulse 81 04/17/18 13:59 Resp 18 04/17/18 13:59 BP 164/112 04/17/18 13:59 Pulse Ox 100 04/17/18 13:59 Vital Signs Reviewed: Yes Hypertension Course/Dx - Course Course Of Treatment: Discussed with the pt that her elevated BP is likely the reason for her headache. Given her vomiting earlier today and continued headache since last night - advised to go the ED for BP management and a further workup. - Differential Dx/Diagnosis Provider Diagnoses: Headache. Vomiting. HTN Discharge - Sign-Out/Discharge Documenting (check all that apply): Patient Departure All imaging exams completed and their final reports reviewed: No Studies - Discharge Plan Condition: Stable Disposition: HOME-RECOMMEND TO ED Referrals: Harjeet BAZAN,Corina Fischer [Primary Care Provider] - As Soon As Possible Additional Instructions: Please go to the ER for further evaluation of your headache, vomiting, and high blood pressure - Billing Disposition and Condition Condition: STABLE Disposition: Home-Recommend to ED
== END 2018-04-17 14:15 | disposition home health service (06) ==
LOC: UCEAST 13:55
DX: R51 Headache (principal); R11.10 Vomiting, unspecified; I10 Essential (primary) hypertension; Z88.0 Allergy status to penicillin
CPT/HCPCS: 99212; G0463

== ENCOUNTER 2018-04-17 14:32 | Emergency (ER) | payer OTHER ==
[2018-04-17] MEDS ORDERED: Ketorolac INJ* 30 MG/ML 1 ML VIAL IV PUSH ONE (16:31)
[2018-04-17] MEDS ORDERED: Labetalol IV* 5 MG/ML 20 ML VIAL IV PUSH ONE (16:31)
[2018-04-17] MEDS ORDERED: NS 0.9% 1000 ML* 1,000 ML IV ONE (16:31)
[2018-04-17] MEDS ORDERED: Metoclopramide IV* 5 MG/ML 2 ML VIAL IV ONE (16:31)
[2018-04-17] MEDS ORDERED: DiMENhydriNATE IV* 50 MG/ML VIAL IV PUSH ONE (16:31)
--- NOTE | 2018-04-17 16:50 | ED ---
Headache - HPI Summary HPI Summary: Pt is a 32 y/o female who presents to the ED c/o migraine since 18:00 yesterday. The migraine is throbbing and left-sided. She c/o N/V/D and photophobia. Pt was not able to take her HTN medication due to vomiting. She recently changed her BP medications. She states shes been having a lot of migraines lately, and is not on medication for them. Pt denies any CP, SOB, abdominal pain, or blurry vision. BP in room 206/118. LNMP currently. - History Of Current Complaint Chief Complaint: EDHypertension Stated Complaint: HIGH BP Time Seen by Provider: 04/17/18 16:25 Hx Obtained From: Patient Hx Last Menstrual Period: 04/13/18 Onset/Duration: Gradual Onset, Started days ago - 18:00 yesterday, Still Present Timing: Constant Character: Migraine Location of Headache: Other: - Left Allevating Factors: Nothing Associated Signs And Symptoms: Nausea, Vomiting, Other (Noted In Comments) - Photophobia - Allergies/Home Medications Allergies/Adverse Reactions: Allergies Allergy/AdvReac Type Severity Reaction Status Date / Time Penicillins Allergy Swelling Verified 04/17/18 14:01 PMH/Surg Hx/FS Hx/Imm Hx Endocrine/Hematology History: Denies: Hx Diabetes, Hx Thyroid Disease Cardiovascular History: Reports: Hx Hypertension Respiratory History: Denies: Hx Asthma, Hx Chronic Obstructive Pulmonary Disease (COPD) GI History: Denies: Hx Ulcer Neurological History: Reports: Hx Migraine - Surgical History Surgery Procedure, Year, and Place: Gallbladder removed 2008 Infectious Disease History: No Infectious Disease History: Denies: Hx Clostridium Difficile, Hx Hepatitis, Hx Human Immunodeficiency Virus (HIV), Hx of Known/Suspected MRSA, Hx Shingles, Hx Tuberculosis, Hx Known/ Suspected VRE, Hx Known/Suspected VRSA, History Other Infectious Disease, Traveled Outside the [place] in Last 30 Days - Family History Known Family History: Positive: Hypertension, Diabetes, Other - Arthritis, migraine - Social History Alcohol Use: Occasionally Hx Substance Use: No Substance Use Type: Reports: None Hx Tobacco Use: Yes Smoking Status (MU): Former Smoker Review of Systems Positive: Photophobia. Negative: Blurred Vision Negative: Chest Pain Negative: Shortness Of Breath Positive: Vomiting, Diarrhea, Nausea. Negative: Abdominal Pain Positive: Headache - Migraine All Other Systems Reviewed And Are Negative: Yes Physical Exam - Summary Physical Exam Summary: Appearance: Well appearing, no pain distress Skin: warm, dry, reflects adequate perfusion Head/face: normal, temporal arteries non-tender Eyes: EOMI, GINGER, globes soft, vision grossly normal ENT: mucous membranes moist Neck: supple, non-tender Respiratory: CTA, breath sounds present Cardiovascular: RRR, pulses symmetrical Abdomen: non-tender, soft Bowel Sounds: present Musculoskeletal: normal, strength/ROM intact Neuro: normal, sensory motor intact, A&Ox3 Triage Information Reviewed: Yes Vital Signs On Initial Exam: Initial Vitals Temp Pulse Resp BP Pulse Ox 97.9 F 63 14 172/98 100 04/17/18 14:43 04/17/18 14:43 04/17/18 14:43 04/17/18 14:43 04/17/18 14:43 Vital Signs Reviewed: Yes Diagnostics - Vital Signs Vital Signs Temp Pulse Resp BP Pulse Ox 04/17/18 14:43 97.9 F 63 14 172/98 100 - Laboratory Lab Statement: Any lab studies that have been ordered have been reviewed, and results considered in the medical decision making process. Re-Evaluation - Re-Evaluation First Eval Re-Evaluation Time: 17:40 Change: Improved Comment: Pt's headache is gone, BP is 150 Headache Course/Dx - Course Course Of Treatment: Patient with recurrent headache who also has been unable to take her blood pressure medication. She reports gradual onset and no high- risk features. She is treated here with full relief of her headache. Her blood pressure is down to 150. She is feeling well and will discharged to follow up closely with her primary care physician. - Diagnoses Differential Diagnosis/HQI/PQRI: Sinus Headache, Subarachnoid Hemorrhage, Temporal Arteritis, Tension Headache, Viral Syndrome Provider Diagnoses: Elevated blood pressure reading, Migraine Discharge - Sign-Out/Discharge Documenting (check all that apply): Patient Departure - Discharge - Discharge Plan Condition: Improved Disposition: HOME Prescriptions: Promethazine TAB* [Phenergan Tab*] 25 mg PO Q6H PRN #20 tab PRN Reason: headache/nausea Patient Education Materials: Migraine Headache (ED), Hypertension (ED) Referrals: Harjeet BAZAN,Corina Fischer [Primary Care Provider] - Additional Instructions: Medication prescribed for headache can be taken with Benadryl and/or ibuprofen if headaches are severe. Caffeine and hydration will also help. Call your doctor tomorrow to schedule follow-up for blood pressure recheck and also to reevaluate your headaches. Return if worse, new symptoms or other concerns as discussed. - Billing Disposition and Condition Condition: IMPROVED Disposition: Home - Attestation Statements Document Initiated by Car: Yes Documenting Scribe: Cecilia Davenport Provider For Whom Sharondae is Documenting (Include Credential): Gian Robles MD Scribe Attestation: ICecilia, scribed for Gian Robles MD on 04/17/18 at 2140. Scribe Documentation Reviewed: Yes Provider Attestation: The documentation as recorded by the Cecilia lopez accurately reflects the service I personally performed and the decisions made by , Gian Robles MD
[2018-04-17 17:46] VITALS: BP 149/104
== END 2018-04-17 17:45 | disposition home or self-care (01) ==
LOC: ED 14:32
DX: G43.909 Migraine, unspecified, not intractable, without status migrainosus (principal); R03.0 Elevated blood-pressure reading, without diagnosis of hypertension; R11.2 Nausea with vomiting, unspecified; H53.149 Visual discomfort, unspecified; R51 Headache; Z87.891 Personal history of nicotine dependence
CPT/HCPCS: 99282; J1240; J1885; J2765

== ENCOUNTER → 2018-08-16 16:21 | Emergency (ER) | payer OTHER ==
[~2018-08-16 16:21] MED LIST: Hydrochlorothiazide TAB* 25 MG PO ONE; Ondansetron ODT TAB* 4 MG PO ONE; amLODIPine TAB* 5 MG PO ONE
[2018-08-16 17:25] LABS: ABS Basophils 0 10^3/ul (0-0.2); ABS Eosinophils 0.1 10^3/ul (0-0.6); ABS Monocytes 0.8 10^3/ul (0-0.8); ABS Neutrophils 4.2 10^3/ul (1.5-7.7); ABS Nucleated RBC 0 10^3/ul; Eosinophil % 1.4 %; Hematocrit 39 % (35-47); Lymphocyte % 27.7 %; Mean Corpuscular HGB Conc 33 g/dl (31-36); Mean Corpuscular Hemoglobin 29 pg (27-31); Mean Corpuscular Volume 88 fL (80-97); Mean Platelet Volume 9.3 fL (7.4-10.4); Nucleated Red Blood Cells % 0; Platelet Count 254 10^3/ul (150-450); Red Blood Count 4.42 10^6/ul (4.00-5.40); Red Cell Distribution Width 13 % (10.5-15); White Blood Count 7.1 10^3/ul (3.5-10.8)
[2018-08-16 17:43] LABS: ALT 45 U/L (7-52); AST 26 U/L (13-39); Albumin 4.5 g/dL (3.2-5.2); Albumin/Globulin Ratio 1.6 (1-3); Alkaline Phosphatase 78 U/L (34-104); Anion Gap 4 mmol/L (2-11); Blood Urea Nitrogen 14 mg/dL (6-24); C Reactive Protein 2.08 mg/L (<8.01); CO2 Carbon Dioxide 29 mmol/L (22-32); Calcium 9.1 mg/dL (8.6-10.3); Chloride 104 mmol/L (101-111); EGFR African American 117.3 (>60); Globulin 2.8 g/dL (2-4); Glucose 131 mg/dL (70-100); Potassium 3.9 mmol/L (3.5-5.0); Sodium 137 mmol/L (135-145); Total Protein 7.3 g/dL (6.4-8.9)
[2018-08-16 17:49] LABS: HCG Pregnancy < 0.60 mIU/mL
--- NOTE | 2018-08-16 18:08 | ED ---
GI/ HPI - HPI Summary HPI Summary: 32 year old female presents with lower abdominal pain, nausea and vomiting for the past couple weeks. She states the nausea vomiting mostly in the morning. She states she has an IUD. States she is concerned that she is . She does admit to some abnormal vaginal discharge for past 2 weeks. She denies any fevers. No diarrhea. She denies any chest pain or shortness of breath or cough. She denies any urinary symptoms. - History of Current Complaint Chief Complaint: EDGeneral Time Seen by Provider: 08/16/18 17:23 Stated Complaint: NAUSEA/VOMITING/RT SIDE PAIN PER PT Hx Last Menstrual Period: 04/13/18 Pain Intensity: 1 - Allergy/Home Medications Allergies/Adverse Reactions: Allergies Allergy/AdvReac Type Severity Reaction Status Date / Time Penicillins Allergy Swelling Verified 08/16/18 16:23 Home Medications: Home Medications Lisinopril/HCTZ 20/12.5(NF) [Zestoretic 20/12.5(NF)] 1 tab PO DAILY 08/16/18 [ History Confirmed 08/16/18] PMH/Surg Hx/FS Hx/Imm Hx Endocrine/Hematology History: Denies: Hx Diabetes, Hx Thyroid Disease Cardiovascular History: Reports: Hx Hypertension Respiratory History: Denies: Hx Asthma, Hx Chronic Obstructive Pulmonary Disease (COPD) GI History: Denies: Hx Ulcer Neurological History: Reports: Hx Migraine - Surgical History Surgery Procedure, Year, and Place: Gallbladder removed 2008 Infectious Disease History: No Infectious Disease History: Denies: Hx Clostridium Difficile, Hx Hepatitis, Hx Human Immunodeficiency Virus (HIV), Hx of Known/Suspected MRSA, Hx Shingles, Hx Tuberculosis, Hx Known/ Suspected VRE, Hx Known/Suspected VRSA, History Other Infectious Disease, Traveled Outside the [place] in Last 30 Days - Family History Known Family History: Positive: Hypertension, Diabetes, Other - Arthritis, migraine - Social History Alcohol Use: Occasionally Hx Substance Use: No Substance Use Type: Reports: None Hx Tobacco Use: Yes Smoking Status (MU): Former Smoker Review of Systems Negative: Fever Negative: Chest Pain Negative: Shortness Of Breath Positive: Abdominal Pain, Vomiting, Nausea All Other Systems Reviewed And Are Negative: Yes Physical Exam Triage Information Reviewed: Yes Vital Signs On Initial Exam: Initial Vitals Temp Pulse Resp BP Pulse Ox 98.4 F 86 15 193/120 100 08/16/18 16:23 08/16/18 16:23 08/16/18 16:23 08/16/18 16:23 08/16/18 16:23 Vital Signs Reviewed: Yes Appearance: Positive: Well-Appearing Skin: Positive: Warm, Dry Head/Face: Positive: Normal Head/Face Inspection Eyes: Positive: Normal, EOMI, GINGER, Conjunctiva Clear ENT: Positive: Normal ENT inspection, Pharynx normal, TMs normal Respiratory/Lung Sounds: Positive: Clear to Auscultation, Breath Sounds Present Cardiovascular: Positive: Normal, RRR Abdomen Description: Positive: Soft, Other: - tenderness LLQ Bowel Sounds: Positive: Present Pelvic Exam: Positive: External Exam Normal, Speculum Exam Normal, Bimanual Exam Normal, No Cerv. Motion Tender Musculoskeletal: Positive: Normal Neurological: Positive: Normal Psychiatric: Positive: Normal Diagnostics - Vital Signs Vital Signs Temp Pulse Resp BP Pulse Ox 08/16/18 16:23 98.4 F 86 15 193/120 100 - Laboratory Lab Results: Lab Results 08/16/18 08/16/18 Range/Units 17:13 17:17 WBC 7.1 (3.5-10.8) 10^3/ul RBC 4.42 (4.00-5.40) 10^6/ul Hgb 13.0 (12.0-16.0) g/dl Hct 39 (35-47) % MCV 88 (80-97) fL MCH 29 (27-31) pg MCHC 33 (31-36) g/dl RDW 13 (10.5-15) % Plt Count 254 (150-450) 10^3/ul MPV 9.3 (7.4-10.4) fL Neut % (Auto) 58.9 % Lymph % (Auto) 27.7 % Giles % (Auto) 11.5 % Eos % (Auto) 1.4 % Baso % (Auto) 0.5 % Absolute Neuts (auto) 4.2 (1.5-7.7) 10^3/ul Absolute Lymphs (auto) 2.0 (1.0-4.8) 10^3/ul Absolute Monos (auto) 0.8 (0-0.8) 10^3/ul Absolute Eos (auto) 0.1 (0-0.6) 10^3/ul Absolute Basos (auto) 0 (0-0.2) 10^3/ul Absolute Nucleated RBC 0 10^3/ul Nucleated RBC % 0 Sodium 137 (135-145) mmol/L Potassium 3.9 (3.5-5.0) mmol/L Chloride 104 (101-111) mmol/L Carbon Dioxide 29 (22-32) mmol/L Anion Gap 4 (2-11) mmol/L BUN 14 (6-24) mg/dL Creatinine 0.70 (0.51-0.95) mg/dL Est GFR ( Amer) 117.3 (>60) Est GFR (Non-Af Amer) 97.0 (>60) BUN/Creatinine Ratio 20.0 (8-20) Glucose 131 H (70-100) mg/dL Calcium 9.1 (8.6-10.3) mg/dL Total Bilirubin 1.10 H (0.2-1.0) mg/dL AST 26 (13-39) U/L ALT 45 (7-52) U/L Alkaline Phosphatase 78 (34-104) U/L C-Reactive Protein 2.08 (<8.01) mg/L Total Protein 7.3 (6.4-8.9) g/dL Albumin 4.5 (3.2-5.2) g/dL Globulin 2.8 (2-4) g/dL Albumin/Globulin Ratio 1.6 (1-3) Beta HCG, Quant < 0.60 mIU/mL Result Diagrams: 08/16/18 17:17 08/16/18 17:13 Lab Statement: Any lab studies that have been ordered have been reviewed, and results considered in the medical decision making process. - Ultrasound No standard instances Ultrasound Interpretation Completed By: Radiologist Summary of Ultrasound Findings: IMPRESSION: 1. No sonographic findings to correlate with patient's symptomatology. 2. Well-positioned IUD. GIGU Course/Dx - Course Course Of Treatment: 32 year old female presents with lower abdominal pain, nausea and vomiting for the past couple weeks. She states the nausea vomiting mostly in the morning. She states she has an IUD. States she is concerned that she is . She does admit to some abnormal vaginal discharge for past 2 weeks. She denies any fevers. No diarrhea. She denies any chest pain or shortness of breath or cough. She denies any urinary symptoms. On exam has mild tenderness in left lower quadrant. No rebound. wbc normal. CRP normal. Patient unable to give us a urine sample. Pelvic exam is otherwise normal. Will wait for cultures. Transvaginal ultrasound is normal. Discussed results with patient. Told to follow-up with primary. gave Zofran for nausea. Patient understands and agrees with plan. - Diagnoses Differential Diagnoses - Female: Ovarian Cyst, STD, Urinary Tract Infection Provider Diagnoses: Abdominal pain, Nausea Discharge - Sign-Out/Discharge Documenting (check all that apply): Patient Departure Patient Received Moderate/Deep Sedation with Procedure: No - Discharge Plan Condition: Good Disposition: HOME Prescriptions: Ondansetron ODT TAB* [Zofran 4 MG Odt TAB*] 4 mg PO Q6H PRN #20 tab.odt PRN Reason: Nausea Patient Education Materials: Abdominal Pain (ED) Referrals: Harjeet BAZAN,Corina Fischer [Primary Care Provider] - Additional Instructions: Can take Zofran every 6 hours as needed for nausea Take ibuprofen or Tylenol for pain as needed every 6 hours Follow up with primary within 5 days Return to ED if develop any new or worsening symptoms - Billing Disposition and Condition Condition: GOOD Disposition: Home
[2018-08-16 20:07] VITALS: BP 202/135
[2018-08-17 13:10] LABS: Neisseria gonorrhoeae (GC) RNA Negative (Negative)
[2018-08-17 13:19] LABS: Trichomonas vaginalis Result Negative (Negative)
== END | disposition home or self-care (01) ==
LOC: ED 16:21
DX: R10.30 Lower abdominal pain, unspecified (principal); R11.2 Nausea with vomiting, unspecified; Z88.0 Allergy status to penicillin; I10 Essential (primary) hypertension
CPT/HCPCS: 36415; 76830; 80053; 84702; 85025; 86140; 87480; 87491; 87510; 87591; 87661; 99282; A9270-GY

== ENCOUNTER 2018-10-11 07:57 | Emergency (ER) | payer OTHER ==
[2018-10-11] MEDS ORDERED: PROCHLORPERAZINE INJ 5 MG/ML 2 ML VIAL IV ONE (08:31)
[2018-10-11] MEDS ORDERED: Ketorolac INJ* 30 MG/ML 1 ML VIAL IV PUSH ONE (08:31)
[2018-10-11] MEDS ORDERED: NS 0.9% 1000 ML** 1,000 ML IV ONE (08:31)
[2018-10-11] MEDS ORDERED: diPHENhydraMINE PO* 25 MG PO ONE (08:31)
--- NOTE | 2018-10-11 08:31 | ED ---
Headache - HPI Summary HPI Summary: Patient is a 32-year-old female who presents emergency department for left- sided headache, photophobia, nausea vomiting, sinus pressure, earache and sore throat. Symptoms started yesterday. Patient states she is history of sinus infection and seasonal allergies. Patient states that she took ibuprofen last night without improvement of headache. She does not a history of hypertension and thought maybe her blood pressure was elevated last night and took second dose of blood pressure medication but headache did not improve so she presents today for evaluation. She denies fever, chills, chest pain, shortness of breath , abdominal pain. Symptoms are moderate in severity. Lights and noises make symptoms worse. Nothing makes symptoms better. Otherwise denies past medical hx. - History Of Current Complaint Chief Complaint: EDHeadache Stated Complaint: "MIGRAINE/POSS SINUS INFECTION" PER PT Time Seen by Provider: 10/11/18 08:10 Hx Obtained From: Patient Hx Last Menstrual Period: iud - Allergies/Home Medications Allergies/Adverse Reactions: Allergies Allergy/AdvReac Type Severity Reaction Status Date / Time Penicillins Allergy Swelling Verified 10/11/18 08:02 PMH/Surg Hx/FS Hx/Imm Hx Previously Healthy: Yes Endocrine/Hematology History: Denies: Hx Diabetes, Hx Thyroid Disease Cardiovascular History: Reports: Hx Hypertension Respiratory History: Denies: Hx Asthma, Hx Chronic Obstructive Pulmonary Disease (COPD) GI History: Denies: Hx Ulcer Neurological History: Reports: Hx Migraine - Surgical History Surgery Procedure, Year, and Place: Gallbladder removed 2008 Infectious Disease History: No Infectious Disease History: Denies: Hx Clostridium Difficile, Hx Hepatitis, Hx Human Immunodeficiency Virus (HIV), Hx of Known/Suspected MRSA, Hx Shingles, Hx Tuberculosis, Hx Known/ Suspected VRE, Hx Known/Suspected VRSA, History Other Infectious Disease, Traveled Outside the [place] in Last 30 Days - Family History Known Family History: Positive: Hypertension, Diabetes, Other - Arthritis, migraine - Social History Occupation: Employed Full-time Lives: With Family Alcohol Use: Occasionally Hx Substance Use: No Substance Use Type: Reports: None Hx Tobacco Use: Yes Smoking Status (MU): Former Smoker Review of Systems Constitutional: Negative Negative: Fever, Chills Positive: Photophobia Positive: Sore Throat, Ear Ache Cardiovascular: Negative Negative: Shortness Of Breath, Cough Positive: Vomiting, Nausea Musculoskeletal: Negative Skin: Negative Positive: Headache. Negative: Weakness, Paresthesia, Numbness, Syncope, Slurred Speech All Other Systems Reviewed And Are Negative: Yes Physical Exam Triage Information Reviewed: Yes Vital Signs On Initial Exam: Initial Vitals Temp Pulse Resp BP Pulse Ox 98.6 F 80 16 149/118 100 10/11/18 08:01 10/11/18 08:01 10/11/18 08:01 10/11/18 08:01 10/11/18 08:01 Vital Signs Reviewed: Yes Appearance: Positive: Well-Appearing - Pt. sitting up in bed in NAD. Lights are out and eyes are closed. Skin: Positive: Warm, Dry Head/Face: Positive: Normal Head/Face Inspection Eyes: Positive: Normal, EOMI, GINGER, Conjunctiva Clear ENT: Positive: Pharynx normal, TMs normal, Other - Significant pain over left maxillary and ethmois sinuses. Neck: Positive: Supple, Nontender. Negative: Nuchal Rigidity Respiratory/Lung Sounds: Positive: Clear to Auscultation, Breath Sounds Present Cardiovascular: Positive: Normal, RRR Abdomen Description: Positive: Nontender, Soft Musculoskeletal: Positive: Normal, Strength/ROM Intact Neurological: Positive: Normal, Alert, Oriented to Person Place, Time, CN Intact II-III, Finger to Nose - normal, Facial Symmetry, Speech Normal. Negative: Facial Droop, Slurred Speech, Pronator Drift Present Psychiatric: Positive: Affect/Mood Appropriate - Marlo Coma Scale Best Eye Response: 4 - Spontaneous Best Motor Response: 6 - Obeys Commands Best Verbal Response: 5 - Oriented Coma Scale Total: 15 Diagnostics - Vital Signs Vital Signs Temp Pulse Resp BP Pulse Ox 10/11/18 08:01 98.6 F 80 16 149/118 100 - Laboratory Lab Statement: Any lab studies that have been ordered have been reviewed, and results considered in the medical decision making process. Headache Course/Dx - Course Course Of Treatment: Patient presenting with left-sided headache, photophobia, nausea and vomiting. She also has a lot of sinus pressure and congestion that started yesterday. Blood pressure initially mildly elevated. She is afebrile. She has no nuchal rigidity. Neuro exam is unremarkable. Patient was given a migraine cocktail consisting of fluids, Toradol, Reglan and Benadryl. On reexamination patient's headache has completely resolved and she is feeling better but feeling jittery which is most likely secondary to Compazine. We'll rx Flonase for sinusitis. Advised increased fluids and rest. Blood pressure has improved. Close follow-up with PCP and return to the ER if symptoms change or worsen. Patient understands and agrees with plan. - Diagnoses Provider Diagnoses: Migraine, Sinusitis Discharge - Sign-Out/Discharge Documenting (check all that apply): Patient Departure Patient Received Moderate/Deep Sedation with Procedure: No - Discharge Plan Condition: Improved Disposition: HOME Prescriptions: Fluticasone NASAL SPRAY 50MCG* [Flonase NASAL SPRAY 50MCG*] 2 spray BOTH NARES DAILY #1 btl Patient Education Materials: Sinusitis (ED), Acute Headache (ED) Referrals: Harjeet BAZAN,Corina Fischer [Primary Care Provider] - 3 Days Additional Instructions: Schedule a follow up appointment with your PCP Use nose spray as directed Continue home medications as directed Ibuprofen as directed for pain Increase fluids and rest Return to ER if symptoms change or worsen - Billing Disposition and Condition Condition: IMPROVED Disposition: Home
[2018-10-11 11:19] VITALS: BP 147/90
== END 2018-10-11 11:18 | disposition home or self-care (01) ==
LOC: ED 07:57
DX: G43.909 Migraine, unspecified, not intractable, without status migrainosus (principal); J32.9 Chronic sinusitis, unspecified; I10 Essential (primary) hypertension; Z87.891 Personal history of nicotine dependence
CPT/HCPCS: 96361; 96374; 96375; 99282; A9270-GY; J0780; J1885

== ENCOUNTER 2018-12-11 09:19 | Emergency (ER) | payer OTHER ==
[2018-12-11] MEDS ORDERED: Metoclopramide IV* 5 MG/ML 2 ML VIAL IV ONE (10:07)
[2018-12-11] MEDS ORDERED: diPHENhydraMINE IV* 50 MG/ML 1 ml VIAL (BENADRYL) IV ONE (10:07)
[2018-12-11] MEDS ORDERED: Ketorolac INJ* 30 MG/ML 1 ML VIAL IV PUSH ONE (10:07)
[2018-12-11] MEDS ORDERED: NS 0.9% 1000 ML** 1,000 ML IV ONE (10:08)
--- NOTE | 2018-12-11 10:17 | ED ---
Headache - HPI Summary HPI Summary: Patient is a 32-year-old female who presents to the ED with left-sided headache and left eye drainage/tearing 2 days. She is also endorsing some pressure to left maxillary sinus and left ear. She states she's had this in the past and has been diagnosed with sinusitis. She does not have a history of migraines, however has had symptoms similar to these in the past and she has been given medications to the IV in the ED. She denies any nausea, but endorses photophobia. She's been taking ibuprofen at home without relief. She does not have a history of high blood pressure, however he tends to be high when she has headaches/migraines. She states this is not headache worst of life and was not acute onset. - History Of Current Complaint Chief Complaint: EDHeadache Stated Complaint: "MIGRAINE/HEADACHE PER PT" Time Seen by Provider: 12/11/18 09:28 Hx Obtained From: Patient Hx Last Menstrual Period: iud Onset/Duration: Gradual Onset Initially Headache Was: Initial Pain Scale(0-10)= - 8 Currently Pain Is: Current Pain Scale(0-10)= - 4 Timing: Constant Aggravating Factor: Nothing Allevating Factors: Nothing Associated Signs And Symptoms: Negative - Risk Factors SAH Risk Factors: Negative - Allergies/Home Medications Allergies/Adverse Reactions: Allergies Allergy/AdvReac Type Severity Reaction Status Date / Time Penicillins Allergy Swelling Verified 10/11/18 08:02 PMH/Surg Hx/FS Hx/Imm Hx Previously Healthy: Yes Endocrine/Hematology History: Denies: Hx Diabetes, Hx Thyroid Disease Cardiovascular History: Reports: Hx Hypertension Respiratory History: Denies: Hx Asthma, Hx Chronic Obstructive Pulmonary Disease (COPD) GI History: Denies: Hx Ulcer Neurological History: Reports: Hx Migraine - Surgical History Surgery Procedure, Year, and Place: Gallbladder removed 2008 - Immunization History Hx Pertussis Vaccination: No Immunizations Up to Date: Yes Infectious Disease History: No Infectious Disease History: Denies: Hx Clostridium Difficile, Hx Hepatitis, Hx Human Immunodeficiency Virus (HIV), Hx of Known/Suspected MRSA, Hx Shingles, Hx Tuberculosis, Hx Known/ Suspected VRE, Hx Known/Suspected VRSA, History Other Infectious Disease, Traveled Outside the [place] in Last 30 Days - Family History Known Family History: Positive: Hypertension, Diabetes, Other - Arthritis, migraine - Social History Occupation: Employed Full-time Lives: With Family Alcohol Use: Occasionally Hx Substance Use: No Substance Use Type: Reports: None Hx Tobacco Use: Yes Smoking Status (MU): Former Smoker Review of Systems Negative: Fever, Chills, Fatigue, Skin Diaphoresis Positive: Drainage Positive: Ear Ache Negative: Palpitations, Chest Pain Negative: Shortness Of Breath, Cough Genitourinary: Negative Positive: no symptoms reported, see HPI Negative: Arthralgia Skin: Negative Positive: Headache All Other Systems Reviewed And Are Negative: Yes Physical Exam Triage Information Reviewed: Yes Vital Signs On Initial Exam: Initial Vitals Temp Pulse Resp BP Pulse Ox 97.9 F 74 18 159/118 97 12/11/18 09:23 12/11/18 09:23 12/11/18 09:23 12/11/18 09:23 12/11/18 09:23 Vital Signs Reviewed: Yes Appearance: Positive: Well-Appearing, Well-Nourished Skin: Positive: Warm, Skin Color Reflects Adequate Perfusion Head/Face: Positive: Normal Head/Face Inspection Eyes: Positive: EOMI, GINGER, Conjunctiva Clear Neck: Positive: Supple, No Lymphadenopathy Respiratory/Lung Sounds: Positive: Clear to Auscultation, Breath Sounds Present Cardiovascular: Positive: RRR, Pulses are Symmetrical in both Upper and Lower Extremities Musculoskeletal: Positive: Normal, Strength/ROM Intact Neurological: Positive: Speech Normal Psychiatric: Positive: Normal, Affect/Mood Appropriate Diagnostics - Vital Signs Vital Signs Temp Pulse Resp BP Pulse Ox 12/11/18 09:41 67 152/88 98 12/11/18 09:23 97.9 F 74 18 159/118 97 - Laboratory Result Diagrams: 12/11/18 10:09 12/11/18 10:09 Lab Statement: Any lab studies that have been ordered have been reviewed, and results considered in the medical decision making process. Headache Course/Dx - Course Course Of Treatment: During this course of treatment, the patient is evaluated for migraine/headache 2 days. She denies any nausea, but endorses photophobia. She states she's had this in the past and was diagnosed with sinusitis. She also notes to high blood pressure when she has her headaches and is concerned over her blood pressure on today's visit. On arrival into the ED, the patient appears well, and vital signs are stable other than of 159/118 BP. After patient is settled in room, BP decreases to 152/88. Lungs CTA, RRR, no maxillary sinus tenderness bilaterally, TM bilaterally without erythema or drainage. No drainage from bilateral eyes, conjunctiva clear. EOMI. Patient is given Toradol, Benadryl and 1 L normal saline. She denies any nausea, so no antiemetics were given at this time. Patient improves and states she is a symptom at this time. She is given return precautions as well as encouraged ibuprofen and follow-up with her PCP. - Diagnoses Differential Diagnosis/HQI/PQRI: Migraine, Sinus Headache, Tension Headache, Other - allergic response Provider Diagnoses: Headache Discharge - Sign-Out/Discharge Documenting (check all that apply): Patient Departure Patient Received Moderate/Deep Sedation with Procedure: No - Discharge Plan Condition: Stable Disposition: HOME Patient Education Materials: Migraine Headache (ED) Referrals: Corina Cosby PA [Primary Care Provider] - Additional Instructions: You most likely have a headache when allergies worsen Please follow up with your PCP regarding this Ibuprofen and tylenol may be used intermittently for discomfort Nasal sprays may be used to help with allergy symptoms - Billing Disposition and Condition Condition: STABLE Disposition: Home
[2018-12-11 10:22] LABS: ABS Basophils 0.1 10^3/ul (0-0.2); ABS Eosinophils 0.1 10^3/ul (0-0.6); ABS Lymphocytes 1.5 10^3/ul (1.0-4.8); ABS Neutrophils 6.9 10^3/ul (1.5-7.7); Eosinophil % 1.5 %; Hematocrit 40 % (35-47); Lymphocyte % 16.1 %; Mean Corpuscular HGB Conc 35 g/dL (31-36); Mean Corpuscular Hemoglobin 30 pg (27-31); Mean Corpuscular Volume 87 fL (80-97); Mean Platelet Volume 9.4 fL (7.4-10.4); Platelet Count 240 10^3/uL (150-450); Red Blood Count 4.64 10^6 /uL (3.70-4.87); Red Cell Distribution Width 13 % (10-15); White Blood Count 9.6 10^3/uL (3.5-10.8)
[2018-12-11 10:41] LABS: Albumin 4.3 g/dL (3.2-5.2); Albumin/Globulin Ratio 1.5 (1-3); BUN/Creatinine Ratio 27.9 (8-20); Calcium 9.2 mg/dL (8.6-10.3); EGFR African American 137.5 (>60); EGFR Non-African American 113.7 (>60); Globulin 2.9 g/dL (2-4); Potassium 3.8 mmol/L (3.5-5.0); Total Bilirubin 1.1 mg/dL (0.2-1.0); Total Protein 7.2 g/dL (6.4-8.9)
[2018-12-11 12:28] VITALS: BP 141/85
== END 2018-12-11 12:27 | disposition home or self-care (01) ==
LOC: ED 09:19
DX: R51 Headache (principal); I10 Essential (primary) hypertension; Z87.891 Personal history of nicotine dependence
CPT/HCPCS: 36415; 80053; 85025; 96361; 96374; 96375; 99282; J1200; J1885

== ENCOUNTER 2019-05-18 22:25 | Emergency (ER) | payer OTHER ==
--- NOTE | 2019-05-18 22:54 | ED ---
Skin Complaint - HPI Summary HPI Summary: 33-year-old female with significant past medical history of hypertension reports the emergency department complaining of a left groin abscess which she has had since 05/13/2019. She states she is given Levaquin by her PCP and told to take sitz baths for resolution of her symptoms. She reports emergency department today due to her abscess not decreasing in size and states that it "burst today". She currently endorses 8 out of 10 pain which is worse with ambulation but denies fever or any other associated symptoms. She denies fever , chest pain, abdominal pain, pain with urination, rash. - History of Current Complaint Chief Complaint: EDRashSkinAbscess Time Seen by Provider: 05/18/19 22:53 Stated Complaint: RUPTURED CYST ON LT THIGH PER PT Hx Obtained From: Patient Hx Last Menstrual Period: iud Onset/Duration: Started Days Ago Skin Exposure Onset/Duration: Days Ago Timing: Constant Onset Severity: Moderate Current Severity: Severe Pain Intensity: 7 Pain Scale Used: 0-10 Numeric Skin Location: Leg Character: Pain, Raised, Painful Associated Signs & Symptoms: Drainage - Allergy/Home Medications Allergies/Adverse Reactions: Allergies Allergy/AdvReac Type Severity Reaction Status Date / Time Penicillins Allergy Swelling Verified 05/18/19 22:33 PMH/Surg Hx/FS Hx/Imm Hx Endocrine/Hematology History: Denies: Hx Diabetes, Hx Thyroid Disease Cardiovascular History: Reports: Hx Hypertension Respiratory History: Denies: Hx Asthma, Hx Chronic Obstructive Pulmonary Disease (COPD) GI History: Denies: Hx Ulcer Neurological History: Reports: Hx Migraine - Surgical History Surgery Procedure, Year, and Place: Gallbladder removed 2008 Infectious Disease History: No Infectious Disease History: Denies: Hx Clostridium Difficile, Hx Hepatitis, Hx Human Immunodeficiency Virus (HIV), Hx of Known/Suspected MRSA, Hx Shingles, Hx Tuberculosis, Hx Known/ Suspected VRE, Hx Known/Suspected VRSA, History Other Infectious Disease, Traveled Outside the [place] in Last 30 Days - Family History Known Family History: Positive: Hypertension, Diabetes, Other - Arthritis, migraine - Social History Alcohol Use: Occasionally Hx Substance Use: No Substance Use Type: Reports: None Hx Tobacco Use: Yes Smoking Status (MU): Former Smoker Review of Systems Constitutional: Negative Eyes: Negative ENT: Negative Cardiovascular: Negative Respiratory: Negative Gastrointestinal: Negative Genitourinary: Negative Musculoskeletal: Negative Positive: Other - groin abscess with drainage Neurological: Negative Psychological: Normal All Other Systems Reviewed And Are Negative: Yes Physical Exam - Summary Physical Exam Summary: There is a 5 cm abscess noted to the proximal medial left thigh with small amounts of purulent drainage. There is no erythema to the area however there is significant induration surrounding the abscess. There is an area of fluctuance at the apex. Triage Information Reviewed: Yes Vital Signs On Initial Exam: Initial Vitals Temp Pulse Resp BP Pulse Ox 97.7 F 80 16 127/89 99 05/18/19 22:25 05/18/19 22:25 05/18/19 22:25 05/18/19 22:25 05/18/19 22:25 Vital Signs Reviewed: Yes Appearance: Positive: Well-Appearing, No Pain Distress, Well-Nourished Skin: Positive: Warm, Skin Color Reflects Adequate Perfusion Eyes: Positive: EOMI, GINGER ENT: Positive: Hearing grossly normal Respiratory/Lung Sounds: Positive: Clear to Auscultation, Breath Sounds Present Cardiovascular: Positive: RRR, S1, S2 Abdomen Description: Positive: Soft Bowel Sounds: Positive: Present Musculoskeletal: Positive: Strength/ROM Intact Neurological: Positive: Sensory/Motor Intact, Alert, Oriented to Person Place, Time, Facial Symmetry, Speech Normal Psychiatric: Positive: Normal AVPU Assessment: Alert Procedures - Sedation Patient Received Moderate/Deep Sedation with Procedure: No - Incision and Drainage Left Lower Medial Proximal Thigh Site: left proximal medial thigh Anesthesia: Local, Lidocaine - without epinephrine Instrument(s): Scalpel - along the Packing: Other - half inch iodoform packing Diagnostics - Vital Signs Vital Signs Temp Pulse Resp BP Pulse Ox 05/18/19 22:25 97.7 F 80 16 127/89 99 - Laboratory Lab Statement: Any lab studies that have been ordered have been reviewed, and results considered in the medical decision making process. Course/Dx - Course Course Of Treatment: Patient was evaluated for an abscess to her proximal medial thigh which was slowly draining. She was seen and examined her vitals are stable and she is afebrile. An incision and drainage was performed for treatment of the abscess. The abscess was packed using half-inch form packing and a dressing was applied over it. She was given 1 dose of Bactrim in the emergency department and given a prescription for 5 days' worth as an outpatient. She was told to discontinue her Levaquin as it was thought Bactrim was a more appropriate antibiotic for her abscess. Patient was given 5/325 oxycodone/acetaminophen for her pain in the emergency department as she had a ride home. She was told to return to the emergency Department immediately should any new or worsening symptoms and to follow up with her primary care provider for wound check and packing in 1-2 days. Patient agreed with this plan - Differential Diagnoses - Skin Complaint Differential Diagnoses: Abscess, Cellulitis, MRSA - Diagnoses Provider Diagnoses: Abscess Discharge ED - Sign-Out/Discharge Documenting (check all that apply): Patient Departure - Discharge Plan Condition: Stable Disposition: HOME Prescriptions: Sulfamethox/Trimethoprim DS* [Bactrim DS 800/160 TAB*] 1 tab PO BID #10 tab Patient Education Materials: Abscess (ED) Forms: *Work Release Referrals: Corina Cosby PA [Primary Care Provider] - 2 Days Additional Instructions: You were seen in the emergency department today for an abscess in your thigh. This abscess was drained and packed. Please follow-up with your primary care physician in one to 2 days for wound check and reevaluation. I prescribed an antibiotic to provide better coverage of likely microbes causing your abscess. Please discontinue taking your Levaquin and began taking Bactrim. You may take ibuprofen 600 mg every 6 hours as needed for pain. Please return to the emergency department immediately if you develop any new or worsening symptoms. - Billing Disposition and Condition Condition: STABLE Disposition: Home
[2019-05-18] MEDS ORDERED: Sulfamethox/Trimethoprim DS 800/160* TAB PO ONE (23:17)
[2019-05-18] MEDS ORDERED: Lidocaine 1% INJ* 10 MG/ML 30 ML SDV INJ ONE (23:18)
[2019-05-18] MEDS ORDERED: Lidocaine 1% INJ* 10 MG/ML 30 ML SDV ONE (23:20)
[2019-05-19] MEDS ORDERED: oxyCODONE/Acetamin 5/325 MG* TAB PO ONE (00:55)
[2019-05-19 01:17] VITALS: BP 124/71
== END 2019-05-19 01:05 | disposition home or self-care (01) ==
LOC: ED 22:25
DX: L02.416 Cutaneous abscess of left lower limb (principal); I10 Essential (primary) hypertension; Z88.0 Allergy status to penicillin; Z87.891 Personal history of nicotine dependence
CPT/HCPCS: 10060; 99283; A9270-GY

== ENCOUNTER 2019-06-06 08:51 | Emergency (ER) | payer OTHER ==
[2019-06-06 09:11] VITALS: BP 145/98
--- NOTE | 2019-06-06 09:49 | UC ---
Headache HPI - HPI Summary HPI Summary: PATIENT COMES IN COMPLAINING OF SHARP RIGHT-SIDED HEADACHE THAT STARTED LESS THAN 24 HOURS AGO. STATES SHE IS NOT A HEADACHE PERSON NORMALLY BUT THAT EARLIER THIS MONTH SHE HAD A SIMILAR HEADACHE. WENT TO SEE HER PCP AND RECEIVED A SHOT OF TORADOL WHICH SHE DID NOT THINK WAS THAT EFFECTIVE. HEADACHE WENT AWAY AFTER ABOUT 24 HOURS. SHE ALSO IS COMPLAINING OF A FEW DAYS OF UPPER RESPIRATORY SYMPTOMS INCLUDING NASAL CONGESTION, SNEEZING, SORE THROAT AND DRAINAGE. NO FEVER, NAUSEA/VOMITING. STATES SHE HAS BEEN INTERMITTENTLY DIZZY AND EXPERIENCING BLURRY VISION FOR ABOUT A MONTH. STATES SHE SAW HER PCP ABOUT THIS AND HAD LAB WORK DRAWN THAT SHE REPORTS WAS NORMAL. - History Of Current Complaint Chief Complaint: UCGeneralIllness Stated Complaint: HEADACHE Time Seen by Provider: 06/06/19 09:27 Hx Obtained From: Patient Hx Last Menstrual Period: IUD in place Onset/Duration: Gradual Onset, Lasting Days, Still Present Onset Of Symptoms: Gradual Initially Headache Was: Moderate Currently Pain Is: Moderate Pain Intensity: 8 Pain Scale Used: 0-10 Numeric Timing: Constant Character: Sharp Aggravating Factor(s): Nothing Allevating Factor(s): Nothing Associated Signs And Symptoms: Positive: Dizziness, Visual Changes. Negative: Decreased LOC - Allergies/Home Medications Allergies/Adverse Reactions: Allergies Allergy/AdvReac Type Severity Reaction Status Date / Time Penicillins Allergy Swelling Verified 06/06/19 09:11 Home Medications: Home Medications Acetaminophen [Tylophen] 1 tab PO ONCE PRN 06/06/19 [History Confirmed 06/06/19] Ibuprofen 800 mg PO ONCE PRN 06/06/19 [History Confirmed 06/06/19] Metoprolol Tartrate 1 tab PO DAILY 06/06/19 [History Confirmed 06/06/19] PMH/Surg Hx/FS Hx/Imm Hx Previously Healthy: Yes - Surgical History Surgical History: Yes Surgery Procedure, Year, and Place: Gallbladder removed 2008 - Family History Known Family History: Positive: Hypertension, Diabetes, Other - Arthritis, migraine - Social History Alcohol Use: Occasionally Substance Use Type: None Smoking Status (MU): Former Smoker Household Exposure Type: Cigarettes Review of Systems All Other Systems Reviewed And Are Negative: Yes Constitutional: Positive: Fatigue ENT: Positive: Sore Throat, Nasal Discharge Respiratory: Positive: Cough Cardiovascular: Positive: Negative Gastrointestinal: Positive: Negative Neurological: Positive: Headache Physical Exam Triage Information Reviewed: Yes Appearance: Well-Appearing, No Pain Distress, Well-Nourished Vital Signs: Initial Vital Signs Temp 98.4 F 06/06/19 09:06 Pulse 70 06/06/19 09:06 Resp 18 06/06/19 09:06 BP 145/98 06/06/19 09:06 Pulse Ox 98 06/06/19 09:06 Laboratory Tests 06/06/19 09:40 Influenza A (Rapid) Negative Influenza B (Rapid) Negative Eyes: Positive: Conjunctiva Clear ENT: Positive: Hearing grossly normal, Pharynx normal, TMs normal Neck: Positive: Supple, Nontender, No Lymphadenopathy Respiratory Exam: Normal Cardiovascular Exam: Normal Abdomen Description: Positive: Soft Musculoskeletal: Positive: No Edema Neurological: Positive: Alert Psychological: Positive: Age Appropriate Behavior Skin: Negative: Rashes Diagnostics - Radiology CT HEAD W/O CONTRAST Radiology Interpretation Completed By: Radiologist Summary of Radiographic Findings: NO EVIDENCE FOR ACUTE INTRACRANIAL ABNORMALITY. Headache Course/Dx - Differential Dx/Diagnosis Provider Diagnosis: Headache, Acute URI Discharge ED - Sign-Out/Discharge Documenting (check all that apply): Patient Departure All imaging exams completed and their final reports reviewed: Yes - Discharge Plan Condition: Stable Disposition: HOME Patient Education Materials: Upper Respiratory Infection (ED), General Headache (ED) Referrals: Yann Franklin MD [Medical Doctor] - 1 Week Corina Cosby PA [Primary Care Provider] - 2 Weeks Additional Instructions: FLU SWAB NEGATIVE YOUR RESPIRATORY SYMPTOMS ARE LIKELY VIRALLY MEDIATED AND SHOULD RESOLVE ON THEIR OWN WITH TIME. NO INDICATION FOR ANTIBIOTICS AT PRESENT. REST, HYDRATE, OTC MEDS NEEDED. SEEK FOLLOW-UP IF YOU ARE NOT IMPROVING OVER THE NEXT 1-[address] UNREMARKABLE. GIVEN YOUR INTERMITTENT DIZZINESS WOULD CONSIDER FOLLOW- UP WITH NEUROLOGY. CALL THEIR OFFICE TO SCHEDULE THE FIRST AVAILABLE APPOINTMENT. GO TO THE ER WITHOUT FAIL IF YOU DEVELOP WORSENING DIZZINESS, HEADACHE, NAUSEA, VISUAL DISTURBANCES OR ANY OTHER CONCERNING SYMPTOMS. - Billing Disposition and Condition Condition: STABLE Disposition: Home
[2019-06-06 09:52] LABS: Influenza A Molecular NEGATIVE (Negative); Influenza B Molecular NEGATIVE (Negative)
== END 2019-06-06 10:40 | disposition home or self-care (01) ==
LOC: UCEAST 08:51
DX: J06.9 Acute upper respiratory infection, unspecified (principal); R51 Headache; R53.83 Other fatigue; Z87.891 Personal history of nicotine dependence; Z88.0 Allergy status to penicillin
CPT/HCPCS: 70450; 99211; G0463

== ENCOUNTER 2022-01-07 19:14 | Inpatient (IN) ==
[2022-01-07] MEDS ORDERED: Buffered Lidocaine 1% SYRIN 1 ml INTRADERM ONE (19:56)
[2022-01-07] MEDS ORDERED: Lactated Ringers 1000 ml BAG 1,000 ML IV ONE (20:20)
[2022-01-07 20:43] LABS: Hematocrit 33 % (35-47); Hemoglobin 10.7 g/dL (12.0-16.0); Mean Corpuscular HGB Conc 32 g/dL (31-36); Mean Corpuscular Hemoglobin 27 pg (27-31); Mean Corpuscular Volume 84 fL (80-97); Mean Platelet Volume 9.3 fL (7.4-10.4); Platelet Count 376 10^3/uL (150-450); Red Blood Count 3.92 10^6 /uL (3.70-4.87); Red Cell Distribution Width 15 % (10-15); White Blood Count 11.5 10^3/uL (3.5-10.8)
[2022-01-07 20:44] LABS: Urine Appearance Clear; Urine Color Yellow; Urine Specific Gravity 1.025 (1.005-1.030); Urine pH 6.5 (5.0-9.0)
[2022-01-07 20:45] LABS: Urine Bilirubin Negative (Negative); Urine Blood Negative (Negative); Urine Glucose Negative (Negative); Urine Ketones Trace (Negative); Urine Nitrite Negative (Negative); Urine Protein Negative (Negative); Urine Urobilinogen 0.2 (Negative) (Negative)
[2022-01-07 20:55] LABS: Urine Bacteria 1+ (Absent); Urine Red Blood Cell Trace(0-2/hpf) (Absent); Urine Squamous Epithelial Cell Present (Absent); Urine White Blood Cell 1+(6-10/hpf) (Absent)
[2022-01-07 21:00] LABS: Albumin 3.3 g/dL (3.2-5.2); Albumin/Globulin Ratio 1.1 (1-3); Calcium 9.3 mg/dL (8.6-10.3); Globulin 2.9 g/dL (2-4); Potassium 4.2 mmol/L (3.5-5.0); Total Bilirubin 0.9 mg/dL (0.2-1.0); Total Protein 6.2 g/dL (6.4-8.9); Uric Acid 5.6 mg/dL (2.3-6.6); eGFR CKD-EPI 115.3 (>60)
[2022-01-07 21:02] LABS: Urine Benzodiazepine Screen None Detected (None Detect); Urine Cannabinoids Screen None Detected (None Detect); Urine Opiates Screen None Detected (None Detect)
[2022-01-07 21:07] LABS: ABS Basophils 0.1 10^3/ul (0-0.2); ABS Eosinophils 0.1 10^3/ul (0-0.6); ABS Lymphocytes 1.8 10^3/ul (1.0-4.8); ABS Neutrophils 8.4 10^3/ul (1.5-7.7); Eosinophil % 1.2 %; Nucleated Red Blood Cells % 0.1
[2022-01-07] MEDS: Betamethasone 6 mg/ml 5 ml VIAL IM SCH (21:47)
[2022-01-08] MEDS: Labetalol 300 mg TAB PO SCH ×2 (09:00→14:30)
[2022-01-08] MEDS: Betamethasone 6 mg/ml 5 ml VIAL IM SCH (21:37)
[2022-01-09 08:19] VITALS: BP 130/72
== END 2022-01-09 10:52 | disposition home or self-care (01) | DRG 566 ==
LOC: MCHOBOUT 19:14 → MCHOB 01-08 12:05
PROVIDERS: ADMIT Obstetrics & Gynecology; ATTEND Obstetrics & Gynecology

== ENCOUNTER 2022-01-15 08:00 | Inpatient (IN) ==
[2022-01-15 09:13] LABS: ABS Eosinophils 0.1 10^3/ul (0-0.6); ABS Lymphocytes 1.6 10^3/ul (1.0-4.8); ABS Monocytes 0.8 10^3/ul (0-0.8); ABS Neutrophils 5.8 10^3/ul (1.5-7.7); Eosinophil % 1.3 %; Hematocrit 30 % (35-47); Hemoglobin 9.9 g/dL (12.0-16.0); Mean Corpuscular HGB Conc 33 g/dL (31-36); Mean Corpuscular Hemoglobin 28 pg (27-31); Mean Corpuscular Volume 84 fL (80-97); Nucleated Red Blood Cells % 0.1; Platelet Count 291 10^3/uL (150-450); Red Blood Count 3.61 10^6 /uL (3.70-4.87); Red Cell Distribution Width 16 % (10-15); White Blood Count 8.3 10^3/uL (3.5-10.8)
[2022-01-15 09:40] LABS: Albumin 3.1 g/dL (3.2-5.2); Albumin/Globulin Ratio 1.2 (1-3); Calcium 8.6 mg/dL (8.6-10.3); Globulin 2.6 g/dL (2-4); Potassium 4.2 mmol/L (3.5-5.0); Total Bilirubin 0.7 mg/dL (0.2-1.0); Total Protein 5.7 g/dL (6.4-8.9); Uric Acid 5.2 mg/dL (2.3-6.6); eGFR CKD-EPI 124.6 (>60)
[2022-01-15 09:58] LABS: Urine Appearance Clear; Urine Bilirubin Negative (Negative); Urine Color Yellow; Urine Glucose Negative (Negative); Urine Ketones Negative (Negative)
[2022-01-15 09:59] LABS: Urine Blood Negative (Negative); Urine Nitrite Negative (Negative); Urine Protein Negative (Negative); Urine Urobilinogen 0.2 (Negative) (Negative)
[2022-01-15 10:18] LABS: Urine Bacteria Absent (Absent); Urine Red Blood Cell Trace(0-2/hpf) (Absent); Urine Squamous Epithelial Cell Present (Absent); Urine White Blood Cell Trace(0-5/hpf) (Absent)
[2022-01-15] MEDS ORDERED: Buffered Lidocaine 1% SYRIN 1 ml INTRADERM ONE (10:55)
[2022-01-15] MEDS ORDERED: Lactated Ringers 1000 ml BAG 1,000 ML IV ONE (10:55)
[2022-01-15] MEDS ORDERED: Lactated Ringers 1000 ml BAG 1,000 ML IV SCH (11:00)
[2022-01-15] MEDS ORDERED: miSOPROStol 100 mcg TAB VAGINAL ONE (14:20)
[2022-01-15 14:22] LABS: Urine Benzodiazepine Screen None Detected (None Detect); Urine Opiates Screen None Detected (None Detect)
[2022-01-15] MEDS ORDERED: Labetalol IV 5 MG/ML 20 ml VIAL IV PUSH ONE ×3 (15:01→17:04)
[2022-01-15] MEDS ORDERED: Labetalol IV 5 MG/ML 20 ml VIAL ONE (15:17)
[2022-01-15] MEDS ORDERED: hydrALAZINE 20 mg/ml 1 ML Vial IV ONE (19:06)
[2022-01-15] MEDS ORDERED: hydrALAZINE 20 mg/ml 1 ML Vial IV IV SLOW PU ONE ×4 (19:15→21:00)
[2022-01-15] MEDS ORDERED: OBEPIDURAL (200 ML) 200 ML EPIDURAL ONE (19:39)
[2022-01-15] MEDS ORDERED: Lidocaine 2% w/ EPI 1:200,000 MPF 20 ML SDV VIAL ONE (19:41)
[2022-01-16] MEDS ORDERED: Lactated Ringers 1000 ml BAG 1,000 ML IV ONE (00:50)
[2022-01-16] MEDS ORDERED: Phenylephrine 40 mcg/mL 10mL (400mcg) SYRINGE IV PUSH PRN ×2 (00:50)
[2022-01-16] MEDS ORDERED: Sodium Citrate/Citric Acid LIQ 15 ML UDC PO PRN (00:50)
[2022-01-16] MEDS ORDERED: Lactated Ringers 1000 ml BAG 1,000 ML IV SCH ×2 (01:00→19:00)
[2022-01-16] MEDS: OBEPIDURAL (200 ML) 200 ML EPIDURAL SCH ×2 (01:33→15:52)
[2022-01-16] MEDS: Oxytocin in LR 20,000 MILLI.UNIT/1,000 ML BAG IV SCH (03:43)
[2022-01-16] MEDS ORDERED: hydrALAZINE 20 mg/ml 1 ML Vial IV IV SLOW PU ONE (05:51)
[2022-01-16] MEDS ORDERED: Labetalol IV 5 MG/ML 20 ml VIAL IV PUSH ONE (07:45)
[2022-01-16] MEDS ORDERED: Labetalol IV 5 MG/ML 20 ml VIAL ONE (07:58)
[2022-01-16] MEDS ORDERED: ceFOXitin 2 GM IVPREMIX 2 GM/50 ML BAG ONE (16:58)
[2022-01-16] MEDS ORDERED: ceFOXitin 2 GM IVPREMIX 2 GM/50 ML BAG IVPB ONE (17:00)
[2022-01-16] MEDS ORDERED: Sodium Citrate/Citric Acid LIQ 15 ML UDC PO ONE (17:01)
[2022-01-16] MEDS ORDERED: fentaNYL 100 mcg/2 ml 50 MCG/ML VIAL ONE (17:06)
[2022-01-16] MEDS ORDERED: Lidocaine 2% PF 10 ML AMP (OR) ONE (17:10)
[2022-01-16] MEDS ORDERED: Morphine PF AMP (0.5MG/ML) 5 MG/10 ML AMP ONE (17:11)
[2022-01-16] MEDS ORDERED: Oxytocin 10 UNITS/ML 1 ML VIAL ONE (17:11)
[2022-01-16] MEDS ORDERED: Naloxone 0.4 mg VIAL 0.4 mg/ml 1 ml VIAL IV PRN ×2 (17:54→17:55)
[2022-01-16] MEDS ORDERED: oxyCODONE/Acetamin 5/325 mg TAB PO PRN ×2 (17:54→17:55)
[2022-01-16] MEDS ORDERED: fentaNYL 100 mcg/2 ml 50 MCG/ML VIAL IV PRN (17:54)
[2022-01-16] MEDS ORDERED: Ondansetron 4 mg VIAL 2 MG/ML 2 ml VIAL IV PRN (17:54)
[2022-01-16] MEDS ORDERED: Glycerin ADULT 2.4 gm SUPP PR PRN (18:33)
[2022-01-16] MEDS ORDERED: Witch Hazel PAD JAR TOPICAL PRN (18:33)
[2022-01-16] MEDS ORDERED: Dibucaine 1% OINT 28.35 GM TUBE PR PRN (18:33)
[2022-01-16 20:38] LABS: Hematocrit 23 % (35-47); Hemoglobin 7.5 g/dL (12.0-16.0); Mean Corpuscular HGB Conc 33 g/dL (31-36); Mean Corpuscular Hemoglobin 28 pg (27-31); Mean Corpuscular Volume 85 fL (80-97); Mean Platelet Volume 9.1 fL (7.4-10.4); Platelet Count 297 10^3/uL (150-450); Red Blood Count 2.68 10^6 /uL (3.70-4.87); Red Cell Distribution Width 16 % (10-15); White Blood Count 21.8 10^3/uL (3.5-10.8)
[2022-01-16] MEDS ORDERED: Carboprost Tromethamine 250 mcg 1 ml VIAL ONE (21:09)
[2022-01-16] MEDS ORDERED: Carboprost Tromethamine 250 mcg 1 ml VIAL IM ONE (21:40)
[2022-01-16 21:43] LABS: Platelet Count 317 10^3/ul (150-450)
[2022-01-16 22:17] LABS: Fibrinogen 414.2 mg/dL (110.8-404.3); INR 0.96 (0.89-1.11)
[2022-01-16 23:09] LABS: Schistocytes ABSENT
[2022-01-16 23:20] LABS: Anisocytosis 1+
[2022-01-16 23:22] LABS: Microcytosis 1+
[2022-01-16 23:23] LABS: ABS Lymphocytes 1.3 10^3/ul (1.0-4.8); ABS Monocytes 2.3 10^3/ul (0-0.8); ABS Neutrophils 18.1 10^3/ul (1.5-7.7); Eosinophil % 0.1 %; Lymphocyte % 5.8 %
[2022-01-17 07:37] LABS: Hematocrit 24 % (35-47); Hemoglobin 8.3 g/dL (12.0-16.0); Mean Corpuscular HGB Conc 35 g/dL (31-36); Mean Corpuscular Hemoglobin 30 pg (27-31); Mean Corpuscular Volume 86 fL (80-97); Mean Platelet Volume 9.1 fL (7.4-10.4); Platelet Count 209 10^3/uL (150-450); Red Blood Count 2.77 10^6 /uL (3.70-4.87); Red Cell Distribution Width 18 % (10-15); White Blood Count 21.4 10^3/uL (3.5-10.8)
[2022-01-17 08:09] LABS: Albumin 2.2 g/dL (3.2-5.2); Albumin/Globulin Ratio 1.4 (1-3); Calcium 7.7 mg/dL (8.6-10.3); Globulin 1.6 g/dL (2-4); Potassium 4.5 mmol/L (3.5-5.0); Total Bilirubin 1.9 mg/dL (0.2-1.0); Total Protein 3.8 g/dL (6.4-8.9); eGFR CKD-EPI 86.1 (>60)
[2022-01-17 08:40] LABS: ABS Lymphocytes 1.7 10^3/ul (1.0-4.8); ABS Monocytes 2.1 10^3/ul (0-0.8); ABS Neutrophils 17.6 10^3/ul (1.5-7.7)
[2022-01-17] MEDS: OBEPIDURAL (200 ML) 200 ML EPIDURAL SCH (19:52)
[2022-01-17] MEDS: Oxytocin in LR 20,000 MILLI.UNIT/1,000 ML BAG IV SCH ×3 (19:52→20:34)
[2022-01-18 06:47] LABS: ABS Eosinophils 0.1 10^3/ul (0-0.6); ABS Lymphocytes 1.9 10^3/ul (1.0-4.8); ABS Monocytes 1.9 10^3/ul (0-0.8); ABS Neutrophils 12.4 10^3/ul (1.5-7.7); Eosinophil % 0.8 %; Hematocrit 16 % (35-47); Hemoglobin 5.6 g/dL (12.0-16.0); Lymphocyte % 11.7 %; Mean Corpuscular HGB Conc 34 g/dL (31-36); Mean Corpuscular Hemoglobin 30 pg (27-31); Mean Corpuscular Volume 86 fL (80-97); Mean Platelet Volume 8.6 fL (7.4-10.4); Platelet Count 196 10^3/uL (150-450); Red Cell Distribution Width 19 % (10-15); White Blood Count 16.4 10^3/uL (3.5-10.8)
[2022-01-18 06:48] LABS: ABS Eosinophils 0.1 10^3/ul (0-0.6); ABS Lymphocytes 2.1 10^3/ul (1.0-4.8); ABS Monocytes 1.9 10^3/ul (0-0.8); ABS Neutrophils 12.7 10^3/ul (1.5-7.7); Eosinophil % 0.5 %; Hematocrit 17 % (35-47); Hemoglobin 5.8 g/dL (12.0-16.0); Lymphocyte % 12.4 %; Mean Corpuscular HGB Conc 35 g/dL (31-36); Mean Corpuscular Hemoglobin 30 pg (27-31); Mean Corpuscular Volume 86 fL (80-97); Mean Platelet Volume 8.5 fL (7.4-10.4); Platelet Count 197 10^3/uL (150-450); Red Blood Count 1.91 10^6 /uL (3.70-4.87); Red Cell Distribution Width 19 % (10-15); White Blood Count 16.8 10^3/uL (3.5-10.8)
[2022-01-18 07:38] LABS: Albumin 2.1 g/dL (3.2-5.2); Albumin/Globulin Ratio 1.3 (1-3); Calcium 7.5 mg/dL (8.6-10.3); Globulin 1.6 g/dL (2-4); Potassium 3.9 mmol/L (3.5-5.0); Total Bilirubin 0.6 mg/dL (0.2-1.0); Total Protein 3.7 g/dL (6.4-8.9); eGFR CKD-EPI 105.7 (>60)
[2022-01-18] MEDS ORDERED: Buffered Lidocaine 1% SYRIN 1 ml INTRADERM ONE (08:59)
[2022-01-18 18:55] LABS: Hematocrit 25 % (35-47); Hemoglobin 8.7 g/dL (12.0-16.0)
[2022-01-19 08:11] LABS: Hematocrit 24 % (35-47); Hemoglobin 8.4 g/dL (12.0-16.0); Mean Corpuscular HGB Conc 35 g/dL (31-36); Mean Corpuscular Hemoglobin 30 pg (27-31); Mean Corpuscular Volume 85 fL (80-97); Mean Platelet Volume 8.6 fL (7.4-10.4); Platelet Count 228 10^3/uL (150-450); Red Blood Count 2.81 10^6 /uL (3.70-4.87); Red Cell Distribution Width 20 % (10-15); White Blood Count 13.3 10^3/uL (3.5-10.8)
[2022-01-19 09:02] LABS: ABS Eosinophils 0.2 10^3/ul (0-0.6); ABS Lymphocytes 2.2 10^3/ul (1.0-4.8); ABS Monocytes 1.3 10^3/ul (0-0.8); ABS Neutrophils 9.7 10^3/ul (1.5-7.7); Eosinophil % 1.3 %; Lymphocyte % 16.4 %; Nucleated Red Blood Cells % 0.1
[2022-01-19 09:05] LABS: Anisocytosis 2+
[2022-01-19 09:54] VITALS: BP 145/92
== END 2022-01-19 13:20 | disposition home or self-care (01) | DRG 540 ==
LOC: MCHOBOUT 08:00 → MCHOB 10:59
PROVIDERS: ADMIT Obstetrics & Gynecology; ATTEND Obstetrics & Gynecology